=== PATIENT | female | born 1965 | race Caucasian/White ===

== ENCOUNTER 2017-02-26 05:28 | Emergency (ER) | payer MEDICARE, MEDICAID ==
[2017-02-26] MEDS ORDERED: oxyCODONE/Acetamin 5/325 MG* TAB PO ONE (06:58)
[2017-02-26 07:37] VITALS: BP 180/90
--- NOTE | 2017-02-26 07:56 | RAD ---
INDICATION: Right ankle pain COMPARISON: None TECHNIQUE: AP, lateral, and oblique views were obtained. FINDINGS: There is a nondisplaced oblique fracture of the distal fibular metadiaphysis. No other acute fractures are evident. There is an old medial malleolar fracture. There is minor osteoarthritis about the tibiotalar joint. There is mild diffuse soft tissue swelling. There are heel spurs. IMPRESSION: ACUTE FIBULAR FRACTURE. UNDERLYING POSTTRAUMATIC AND DEGENERATIVE CHANGES.
--- NOTE | 2017-02-26 10:38 | RAD ---
INDICATION: Right foot and ankle pain after inversion injury COMPARISON: Same day ankle radiograph TECHNIQUE: 3 views of the right foot were obtained. FINDINGS: There is a nondisplaced obliquely oriented fracture involving the distal fibula extending to the fibular malleolus. The remaining visualized bones of the foot are well corticated and properly aligned. Joint spaces appear maintained. IMPRESSION: MINIMALLY DISPLACED FRACTURE OF THE DISTAL RIGHT FIBULA. BONES OF THE FOOT ARE INTACT AND APPROPRIATELY ALIGNED. If the patient's symptoms persist, follow-up imaging is recommended.
--- NOTE | 2017-02-26 20:04 | ED ---
Mary Ann Logan Edward, scribed for Flavio Smith MD on 02/26/17 at 0712 . Lower Extremity - HPI Summary HPI Summary: 51 y/o female c/o R ankle pain since last night. Pt reports going into a tub and slipped, twisting and inverting her ankle with immediate ankle pain rated at a 4/10 @ triage. The patient did not fall, did not hit her head or neck. The patient has no other complaints. - History of Current Complaint Chief Complaint: EDExtremityLower Stated Complaint: RT FOOT INJURY Time Seen by Provider: 02/26/17 06:17 Hx Obtained From: Patient Mechanism Of Injury: Fall From A Standing Position Onset of Pain: Immediate Severity Initially: Mild Severity Currently: Mild Pain Intensity: 4 Pain Scale Used: 0-10 Numeric Timing: Constant Associated Signs And Symptoms: Positive: Swelling - R ankle, Other - R ankle pain. No HOLDEN, neck pain - Allergies/Home Medications Allergies/Adverse Reactions: Allergies Allergy/AdvReac Type Severity Reaction Status Date / Time Bee Venom Allergy Severe Anaphylatic Verified 02/26/17 05:46 Shock PMH/Surg Hx/FS Hx/Imm Hx Previously Healthy: No Endocrine/Hematology History: Reports: Hx Thyroid Disease Denies: Hx Anticoagulant Therapy, Hx Diabetes Cardiovascular History: Denies: Hx Hypertension, Hx Pacemaker/ICD Respiratory History: Denies: Hx Asthma, Hx Chronic Obstructive Pulmonary Disease (COPD) History: Denies: Hx Renal Disease Neurological History: Denies: Hx Dementia, Hx Seizures Psychiatric History: Denies: Hx Substance Abuse - Immunization History Date of Tetanus Vaccine: Unk Date of Influenza Vaccine: None Infectious Disease History: No Infectious Disease History: Denies: Hx Hepatitis, History Other Infectious Disease, Traveled Outside the [place] in Last 30 Days - Family History Known Family History: Positive: Other - Ovarian CA - Social History Occupation: Employed Part-time Lives: With Family Alcohol Use: None Substance Use Type: Reports: None Smoking Status (MU): Former Smoker Review of Systems Constitutional: Negative Eyes: Negative ENT: Negative Cardiovascular: Negative Respiratory: Negative Gastrointestinal: Negative Genitourinary: Negative Positive: Arthralgia - R ankle, Edema - R ankle. Negative: Myalgia - No neck pain Skin: Negative Neurological: Negative Negative: Headache Psychological: Normal All Other Systems Reviewed And Are Negative: Yes Physical Exam - Summary Physical Exam Summary: VITAL SIGNS:~Reviewed. GENERAL:~ Patient is a well-developed and obese female who is lying comfortable in the stretcher.~ Patient is not in any acute respiratory distress. HEAD AND FACE:~No signs of trauma.~ No ecchymosis, hematomas or skull depressions. No sinus tenderness. EYES:~PERRLA, EOMI x 2, No injected conjunctiva, no nystagmus. EARS:~Hearing grossly intact. Ear canals and tympanic membranes are within normal limits. MOUTH:~Oropharynx within normal limits. NECK:~Supple, trachea is midline, no adenopathy, no JVD, no carotid bruit, no c- spine tenderness, neck with full ROM. CHEST:~Symmetric, no tenderness at palpation LUNGS:~Clear to auscultation bilaterally. No wheezing or crackles. CVS:~Regular rate and rhythm, S1 and S2 present, no murmurs or gallops appreciated. ABDOMEN:~Soft, non-tender. No signs of distention. No rebound no guarding, and no masses palpated. Bowel sounds are normal. EXTREMITIES:~R ankle edema and decreased ROM. No ecchymosis, no cyanosis or clubbing. Good pedal pulses. Ankle modus normal. NEURO:~Alert and oriented x 3. No acute neurological deficits. Speech is normal and follows commands. SKIN:~Dry and warm ~ Triage Information Reviewed: Yes Vital Signs On Initial Exam: Initial Vitals Temp Pulse Resp BP Pulse Ox 97.6 F 84 18 169/92 96 02/26/17 05:37 02/26/17 05:37 02/26/17 05:37 02/26/17 05:37 02/26/17 05:37 Vital Signs Reviewed: Yes Diagnostics - Vital Signs Vital Signs Temp Pulse Resp BP Pulse Ox 02/26/17 05:37 97.6 F 84 18 169/92 96 - Laboratory Lab Statement: Any lab studies that have been ordered have been reviewed, and results considered in the medical decision making process. - Radiology Foot XR Xray Interpretation: No Acute Changes Radiology Interpretation Completed By: ED Physician Ankle XR Xray Interpretation: Positive (See Comments) - Distal fibula fracture Radiology Interpretation Completed By: ED Physician Lower Extremity Course/Dx - Course Assessment/Plan: 51 y/o female c/o R ankle pain since last night. Pt reports going into a tub and slipped, twisting and inverting her ankle with immediate ankle pain rated at a 4/10 @ triage. The patient did not fall, did not hit her head or neck. The patient has no other complaints. 51 y/o female comes in with a distal fibula fracture. A posterior cast was placed on the patient with no complications. Neurovascular exam after cast placement was normal. Patient was given percocet for pain. Patient was d/c home with f/u with Dr. Reymundo Sierra of Orthopedics. Patient was given crutches and advised of no weight bearing. The patient understands and agrees. - Diagnoses Provider Diagnoses: Fracture of distal fibula Discharge - Discharge Plan Condition: Stable Disposition: HOME Prescriptions: HYDROcodone/ACETAMIN 5-325 MG* [[place] 5-325 TAB*] 1 tab PO Q6H PRN #12 tab MDD 4 PRN Reason: Pain Patient Education Materials: Ankle Fracture (ED) Forms: *Work Release Referrals: Reymundo Sierra MD [Medical Doctor] - 3 Days (Please f/u in 2-3 days) The documentation as recorded by the Mary Ann sue Edward accurately reflects the service I personally performed and the decisions made by Luis bland Walter, MD.
== END 2017-02-26 08:05 | disposition home or self-care (01) ==
LOC: ED 05:28
DX: S82.831A Other fracture of upper and lower end of right fibula, initial encounter for closed fracture (principal); W01.0XXA Fall on same level from slipping, tripping and stumbling without subsequent striking against object, initial encounter; Y92.9 Unspecified place or not applicable; E07.9 Disorder of thyroid, unspecified; Z87.891 Personal history of nicotine dependence
CPT/HCPCS: 29405; 99282; A9270-GY

== ENCOUNTER 2017-07-28 05:37 | Emergency (ER) | payer MEDICARE, MEDICAID ==
[2017-07-28] MEDS ORDERED: Azithromycin TAB* 250 MG PO ONE (06:10)
[2017-07-28 06:24] VITALS: BP 165/86
--- NOTE | 2017-08-10 08:48 | ED ---
Mila Logan Emily, scribed for Amrita Bellamy MD on 07/28/17 at 0612 . Respiratory - HPI Summary HPI Summary: This patient is a 51 year old F presenting to [facility] with a chief complaint of sore throat that began 3 days ago. The patient rates the pain 9/10 in severity. Symptoms aggravated by nothing. Symptoms alleviated by nothing. Patient reports productive cough (yellow sputum) and ear ache. Patient denies double vision, blurry vision, CP, SOB, abd pain, urinary symptoms, bowel symptoms, anxiety, depression, back pain, and neck pain. Pt reports sick contacts at home. - History of Current Complaint Chief Complaint: EDFluSymptoms Stated Complaint: SORE THROAT, COUGH Time Seen by Provider: 07/28/17 06:04 Hx Obtained From: Patient Onset/Duration: Sudden Onset, Lasting Days, Still Present Initial Severity: Severe Current Severity: Severe Pain Intensity: 9 Character: Cough (Productive) Sputum Color: Yellow Aggravating Factor(s): Nothing Alleviating Factor(s): Nothing - Allergy/Home Medications Allergies/Adverse Reactions: Allergies Allergy/AdvReac Type Severity Reaction Status Date / Time Bee Venom Allergy Severe Anaphylatic Verified 02/26/17 05:46 Shock PMH/Surg Hx/FS Hx/Imm Hx Previously Healthy: No Endocrine/Hematology History: Reports: Hx Thyroid Disease Denies: Hx Anticoagulant Therapy, Hx Diabetes Cardiovascular History: Denies: Hx Hypertension, Hx Pacemaker/ICD Respiratory History: Denies: Hx Asthma, Hx Chronic Obstructive Pulmonary Disease (COPD) History: Denies: Hx Renal Disease Neurological History: Denies: Hx Dementia, Hx Seizures Psychiatric History: Denies: Hx Substance Abuse - Immunization History Date of Tetanus Vaccine: Unk Date of Influenza Vaccine: None Infectious Disease History: No Infectious Disease History: Denies: Hx Hepatitis, History Other Infectious Disease, Traveled Outside the [place] in Last 30 Days - Family History Known Family History: Positive: Other - Ovarian CA - Social History Occupation: Employed Part-time Lives: With Family Alcohol Use: None Substance Use Type: Reports: None Smoking Status (MU): Former Smoker Review of Systems Negative: Blurred Vision, Diplopia Positive: Sore Throat, Ear Ache Negative: Chest Pain Positive: Cough. Negative: Shortness Of Breath Negative: Abdominal Pain Positive: no symptoms reported Positive: Other - Negative back pain and neck pain Negative: Rash Negative: Headache Negative: Anxious, Depressed All Other Systems Reviewed And Are Negative: No Physical Exam - Summary Physical Exam Summary: Appearance: Alert, conversive, nontoxic appearing Skin: Warm, dry, no mottling, no rashes, no contusions HEENT: EOMI, PERRL, moist mucous membranes Neck: No masses on the neck, supple Respiratory: Clear to auscultation, breath sounds present, no rales, no rhonchi , no wheezes. Slightly distant due to body habitus. Cardiovascular: RRR, pulses are symmetrical in both lower and upper extremities Abdomen: Soft, non-tender Bowel Sounds: Present Musculoskeletal: No CVA tenderness, no obvious deformity, moving all extremities in a grossly normal manner Neurological: A&Ox3, CN II-XII Intact, moving all extremities symmetrically Psychiatric: Normal affect and mood Triage Information Reviewed: Yes Vital Signs On Initial Exam: Initial Vitals Temp Pulse Resp BP Pulse Ox 97.2 F 90 30 173/82 96 07/28/17 05:41 07/28/17 05:41 07/28/17 05:41 07/28/17 05:41 07/28/17 05:41 Vital Signs Reviewed: Yes - Marion Coma Scale Coma Scale Total: 15 Diagnostics - Vital Signs Vital Signs Temp Pulse Resp BP Pulse Ox 07/28/17 05:41 97.2 F 90 30 173/82 96 - Laboratory Lab Statement: Any lab studies that have been ordered have been reviewed, and results considered in the medical decision making process. Disposition - Course Assessment/Plan: This patient is a 51 year old F presenting to [facility] with a chief complaint of sore throat that began 3 days ago. Physical Exam Findings. Moist mucous membranes. Slightly distant due to body habitus. Patient will be discharged with prescription for azithromycin and follow up from PCP. - Diagnoses Provider Diagnoses: Upper respiratory infection Discharge - Discharge Plan Condition: Stable Disposition: HOME Prescriptions: Azithromyxin ARAMIS (NF) [Z-Aramis (Zithromax) 250 mg tabs #6] 2 tab PO .TODAY, THEN 1 DAILY #6 tab Patient Education Materials: Upper Respiratory Infection (ED) Referrals: Kitty Hassan MD [Primary Care Provider] - Additional Instructions: take the azithromycin as instructed. return if worse or any new symptoms. use your inhalers as instructed. The documentation as recorded by the Mila sue Emily accurately reflects the service I personally performed and the decisions made by me, Amrita Bellamy MD.
== END 2017-07-28 06:26 | disposition home or self-care (01) ==
LOC: ED 05:37
DX: J06.9 Acute upper respiratory infection, unspecified (principal); J02.9 Acute pharyngitis, unspecified; R05 Cough; H92.09 Otalgia, unspecified ear
CPT/HCPCS: 99282; A9270-GY

== ENCOUNTER 2017-08-06 14:42 | Inpatient (IN) | payer MEDICARE, MEDICAID ==
[2017-08-06 16:22] LABS: Hematocrit 39 % (35-47); Hemoglobin 12.4 g/dl (12.0-16.0); Mean Corpuscular HGB Conc 32 g/dl (31-36); Mean Corpuscular Hemoglobin 25 pg (27-31); Mean Corpuscular Volume 77 fL (80-97); Mean Platelet Volume 8 um3 (7.4-10.4); Platelet Count 271 10^3/ul (150-450); Red Blood Count 5.06 10^6/ul (4.0-5.4); Red Cell Distribution Width 17 % (10.5-15); White Blood Count 32.6 10^3/ul (3.5-10.8)
--- NOTE | 2017-08-06 16:28 | RAD ---
INDICATION: Right lower extremity swelling. COMPARISON: There are no prior studies available for comparison. TECHNIQUE: Multiple real-time, color flow and Doppler tracings of the right lower extremity were obtained. The exam is limited due to the patient's body habitus. FINDINGS: The common femoral, femoral, profunda femoral and popliteal veins all demonstrate normal compressibility, augmentation with compression and phasic response with respiration. The posterior tibial veins demonstrate normal compressibility and augmentation with compression. The peroneal veins were not well seen. IMPRESSION: LIMITED STUDY, NO EVIDENCE FOR DEEP VENOUS THROMBOSIS.
[2017-08-06 16:31] LABS: INR 1.3 (0.77-1.02)
[2017-08-06] MEDS ORDERED: Piperacillin/Tazobac ADVAN(*) 3.375 GM in NS 0.9% 100 ML* 100 ML IVPB ONE (16:37)
[2017-08-06] MEDS ORDERED: Vancomycin(*) 2,000 MG in NS 0.9% 250 ML* 250 ML IVPB ONE (16:37)
[2017-08-06 16:46] LABS: EGFR Non-African American 33.5 (>60)
--- NOTE | 2017-08-06 17:43 | RAD ---
INDICATION: Dyspnea. COMPARISON: Comparison is made with a prior chest x-ray study from September 25, 2013. TECHNIQUE: A portable view of the chest was obtained. FINDINGS: Cardiac and mediastinal contours appear to be within normal limits. The lungs are clear. No pleural effusion is seen. IMPRESSION: NO EVIDENCE FOR ACUTE DISEASE.
--- NOTE | 2017-08-06 17:44 | RAD ---
INDICATION: Cellulitis. TECHNIQUE: 2 views of the right lower leg were obtained. FINDINGS: There is diffuse soft tissue swelling which is most prominent anterior to the proximal tibia. No significant focal osseous abnormality is seen. Incidental note is made of moderate to severe osteoarthritic change in the knee. IMPRESSION: SOFT TISSUE SWELLING, NO SIGNIFICANT FOCAL OSSEOUS ABNORMALITY.
[2017-08-06] MEDS ORDERED: Ondansetron INJ* 2 MG/ML VIAL IV PRN (17:54)
--- NOTE | 2017-08-06 18:17 | ED ---
Eric Logan Natalie, scribed for Jose Alberto Moore MD on 08/06/17 at 1539 . Lower Extremity - HPI Summary HPI Summary: The pt is a 51 y/o F presenting to the ED c/o blisters on right lower leg starting a day ago. The pain is rated 4/10 in severity. The pain is aggravated by nothing and is alleviated by nothing. 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 Pt additionally c/o LE edema, erythema, shakiness, and nausea. Pt denies fever and diarrhea. She is not diabetic. She fractured her foot so she couldnt walk much for three months, causing her to gain more weight than usual. - History of Current Complaint Chief Complaint: EDExtremityLower Stated Complaint: BLISTERS ON RT LEG Time Seen by Provider: 08/06/17 15:13 Hx Obtained From: Patient Onset of Pain: Hours Onset/Duration: Hours - started yesterday Pain Intensity: 4 Pain Scale Used: 0-10 Numeric Associated Signs And Symptoms: Positive: Other - POSITIVE: swelling, redness, shakiness, nausea; NEGATIVE: fever, diarrhea Aggravating Factor(s): Nothing Alleviating Factor(s): Nothing - Allergies/Home Medications Allergies/Adverse Reactions: Allergies Allergy/AdvReac Type Severity Reaction Status Date / Time Bee Venom Allergy Severe Anaphylatic Verified 02/26/17 05:46 Shock Home Medications: Home Medications Levothyroxine TAB* [Synthroid TAB*] 75 mcg PO 0800 08/06/17 [History Confirmed 08/06/17] Olmesartan (NF) [Benicar (NF)] 20 mg PO DAILY 08/06/17 [History Confirmed ] PMH/Surg Hx/FS Hx/Imm Hx Previously Healthy: No Endocrine/Hematology History: Reports: Hx Thyroid Disease Denies: Hx Anticoagulant Therapy, Hx Diabetes Cardiovascular History: Denies: Hx Hypertension, Hx Pacemaker/ICD Respiratory History: Denies: Hx Asthma, Hx Chronic Obstructive Pulmonary Disease (COPD) History: Denies: Hx Renal Disease Neurological History: Denies: Hx Dementia, Hx Seizures Psychiatric History: Denies: Hx Substance Abuse - Immunization History Date of Tetanus Vaccine: Unk Date of Influenza Vaccine: None Infectious Disease History: No Infectious Disease History: Denies: Hx Hepatitis, History Other Infectious Disease, Traveled Outside the [place] in Last 30 Days - Family History Known Family History: Positive: Diabetes, Other - Ovarian CA - Social History Alcohol Use: None Substance Use Type: Reports: None Smoking Status (MU): Former Smoker Review of Systems Negative: Fever Positive: Nausea. Negative: Diarrhea Positive: Other - LE edema, erythema Positive: Other - blisters on right lower leg Positive: Weakness - shakiness All Other Systems Reviewed And Are Negative: Yes Physical Exam Triage Information Reviewed: Yes Vital Signs On Initial Exam: Initial Vitals Temp Pulse Resp BP Pulse Ox 96.9 F 106 16 144/83 98 08/06/17 14:47 08/06/17 14:47 08/06/17 14:47 08/06/17 14:47 08/06/17 14:47 Vital Signs Reviewed: Yes Appearance: Positive: Pain Distress - mild pain distress, Obese Skin: Positive: Warm, Other - RLE reddened with skin lesions with clear weeping fluid, warmness to touch Head/Face: Positive: Normal Head/Face Inspection Eyes: Positive: EOMI, JASPER ENT: Positive: Normal ENT inspection Neck: Positive: Supple, Nontender Respiratory/Lung Sounds: Positive: Breath Sounds Present, Other - increased dyspnea sitting up Cardiovascular: Positive: Other - tachypnea Abdomen Description: Positive: Nontender, Soft Bowel Sounds: Positive: Present Musculoskeletal: Positive: Strength/ROM Intact, Other - tense edema in right LE , erythema in anterior and posterior right leg Neurological: Positive: Normal, Sensory/Motor Intact, Alert, Oriented to Person Place, Time Diagnostics - Vital Signs Vital Signs Temp Pulse Resp BP Pulse Ox 08/06/17 14:47 96.9 F 106 16 144/83 98 - Laboratory Lab Results: Lab Results 08/06/17 08/06/17 08/06/17 Range/Units 16:12 16:12 16:12 WBC 32.6 H (3.5-10.8) 10^3/ul RBC 5.06 (4.0-5.4) 10^6/ul Hgb 12.4 (12.0-16.0) g/dl Hct 39 (35-47) % MCV 77 L (80-97) fL MCH 25 L (27-31) pg MCHC 32 (31-36) g/dl RDW 17 H (10.5-15) % Plt Count 271 (150-450) 10^3/ul MPV 8 (7.4-10.4) um3 INR (Anticoag Therapy) 1.30 H (0.77-1.02) APTT 38.0 H (26.0-36.3) seconds Sodium 132 L (133-145) mmol/L Potassium 3.9 (3.5-5.0) mmol/L Chloride 99 L (101-111) mmol/L Carbon Dioxide 23 (22-32) mmol/L Anion Gap 10 (2-11) mmol/L BUN 23 (6-24) mg/dL Creatinine 1.62 H (0.51-0.95) mg/dL Est GFR ( Amer) 43.1 (>60) Est GFR (Non-Af Amer) 33.5 (>60) BUN/Creatinine Ratio 14.2 (8-20) Glucose 105 H (70-100) mg/dL Lactic Acid (0.5-2.0) mmol/L Calcium 8.9 (8.6-10.3) mg/dL Total Bilirubin 1.50 H (0.2-1.0) mg/dL AST 22 (13-39) U/L ALT 21 (7-52) U/L Alkaline Phosphatase 77 (34-104) U/L Troponin I 0.02 (<0.04) ng/mL C-Reactive Protein 370.95 H (< 5.00) mg/L B-Natriuretic Peptide ( - 100) pg/mL Total Protein 8.1 (6.4-8.9) g/dL Albumin 3.6 (3.2-5.2) g/dL Globulin 4.5 H (2-4) g/dL Albumin/Globulin Ratio 0.8 L (1-3) 08/06/17 08/06/17 Range/Units 16:12 16:12 WBC (3.5-10.8) 10^3/ul RBC (4.0-5.4) 10^6/ul Hgb (12.0-16.0) g/dl Hct (35-47) % MCV (80-97) fL MCH (27-31) pg MCHC (31-36) g/dl RDW (10.5-15) % Plt Count (150-450) 10^3/ul MPV (7.4-10.4) um3 INR (Anticoag Therapy) (0.77-1.02) APTT (26.0-36.3) seconds Sodium (133-145) mmol/L Potassium (3.5-5.0) mmol/L Chloride (101-111) mmol/L Carbon Dioxide (22-32) mmol/L Anion Gap (2-11) mmol/L BUN (6-24) mg/dL Creatinine (0.51-0.95) mg/dL Est GFR ( Amer) (>60) Est GFR (Non-Af Amer) (>60) BUN/Creatinine Ratio (8-20) Glucose (70-100) mg/dL Lactic Acid 2.1 H* (0.5-2.0) mmol/L Calcium (8.6-10.3) mg/dL Total Bilirubin (0.2-1.0) mg/dL AST (13-39) U/L ALT (7-52) U/L Alkaline Phosphatase (34-104) U/L Troponin I (<0.04) ng/mL C-Reactive Protein (< 5.00) mg/L B-Natriuretic Peptide 175 H ( - 100) pg/mL Total Protein (6.4-8.9) g/dL Albumin (3.2-5.2) g/dL Globulin (2-4) g/dL Albumin/Globulin Ratio (1-3) Result Diagrams: 08/06/17 16:12 08/06/17 16:12 Lab Statement: Any lab studies that have been ordered have been reviewed, and results considered in the medical decision making process. - Radiology CXR Xray Interpretation: No Acute Changes - No evidence for acute disease. ED physician has reviewed this report. Radiology Interpretation Completed By: Radiologist Right Lower Leg XR Xray Interpretation: No Acute Changes - Soft tissue swelling, no significant focal osseous abnormality. ED physician hsa reviewed this report. Radiology Interpretation Completed By: Radiologist - Ultrasound No standard instances Ultrasound Interpretation: No Acute Changes - VL Lower EXT Veins Right. Limited study, no evidence for deep venous thrombosis. ED physician has reviewed this report. Ultrasound Interpretation Completed By: Radiologist - EKG 16:12 Cardiac Rate: NL EKG Rhythm: Sinus Rhythm - 96 BPM EKG Interpretation: Nml axis. Nml interval. Nml ST. Re-Evaluation - Re-Evaluation First Eval Change: Unchanged - stable thru ED course Lower Extremity Course/Dx - Course Course Of Treatment: morbidly obese but non-diabetic. Clinically with cellulitis , likely from chronic wounds. No fever. Very high WBC. BCx sent. Lactate not elevated. Broad spectrum abx given. Vasc study and xray neg. Admit for further. - Diagnoses Provider Diagnoses: Cellulitis of right lower extremity, Morbid obesity Discharge - Discharge Plan Condition: Fair Disposition: ADMITTED TO [facility] Referrals: Kitty Hassan MD [Primary Care Provider] - The documentation as recorded by the Eric sue Natalie accurately reflects the service I personally performed and the decisions made by Oscar bland Kirk, MD.
[2017-08-06] MEDS ORDERED: NS 0.9% 250 ML* 250 ML ONE (18:18)
[2017-08-06] MEDS ORDERED: Vancomycin per Pharmacy* NOTE FOLLOW UP SCH (19:00)
[2017-08-06] MEDS ORDERED: Zosyn per Pharmacy* NOTE FOLLOW UP SCH (19:00)
[2017-08-06] MEDS ORDERED: Vancomycin(*) 2,000 MG in NS 0.9% 500 ML* 500 ML IVPB ONE (19:00)
[2017-08-06] MEDS: NS 0.9% 1000 ML* 3,000 ML IV ONE ×2 (19:07→22:36)
[2017-08-06] MEDS: Acetaminophen TAB* 325 MG PO PRN (20:04)
--- NOTE | 2017-08-06 23:01 | HP ---
CC: Dr. Hassan * [facility] MEDIC[facility] HISTORY AND PHYSICAL: DATE OF ADMISSION: 08/06/17 PRIMARY CARE PROVIDER: Dr. Hassan ATTENDING PHYSICIAN: Willy Smart MD * (dictation provided by Ara Norris NP) CHIEF COMPLAINT: Right lower extremity swelling and warmth. HISTORY OF PRESENT ILLNESS: Ms. Smith is a 51-year-old female with a past medical history of morbid obesity, hypertension, and hypothyroidism who presents today to the hospital with concern for right lower extremity warmth, swelling and pain. Ms. Smith states that she first begin to notice that it was feeling a lot of warmth in her right lower extremity on morning. She says that she has had an infection to that extremity in the past but that has been many years ago. Over the ensuing 24 hours or so, the patient has noted that the area is much more red, warm and painful. She reports feeling warm and having chills but that she did not take her temperature. She has had nausea but no vomiting, no diarrhea. She was diagnosed with an upper respiratory infection and started on, I believe, azithromycin per ED physician here back on 07/28/17. However, these symptoms has been going on since June when she was in the ED for similar complaint with sore throat. She denies sore throat today. She states that she fells like those symptoms have gotten better. She does appear short of breath at rest, and she attributes this to her cold. She denies any history of asthma or COPD. She uses an inhaler but she cannot tell me what that is. In the emergency room, Ms. Smith had labs that were remarkable for the white blood cell count of 32.6, a CRP of 370.95. Her lactic acid is 2.1. She is mildly hyponatremic with a sodium of 132 and the creatinine is up from baseline at 1.62. Her INR is elevated at 1.30. She is febrile with a temperature of 100.3. She is tachycardiac to about 105. Her blood pressure has fallen since arrival, running systolically about 90s. PAST MEDICAL HISTORY: 1. Hypertension. 2. Hypothyroidism. MEDICATIONS: 1. Olmesartan 20 mg p.o. daily. 2. Levothyroxine 75 mcg p.o. daily. ALLERGIES: BEE VENOM. FAMILY HISTORY: The patient reports her mom had diabetes. Her dad had heart disease and about 10 years ago. Her mom about 20 years ago. SOCIAL HISTORY: The patient quit smoke very briefly as a teen. There is no report of alcohol, drug use. She lives with her [place], who is the healthcare proxy. PHYSICAL EXAMINATION GENERAL: Ms. Smith is lying in the bed. She does not appear to be in any acute distress. VITAL SIGNS: Temperature 100.3, pulse rate 97, respiratory rate 24, O2 saturation 96% on room air, blood pressure 97/74. HEENT: Extraocular movements are intact. Face is symmetric. LUNGS: Diminished likely due to body habitus, but I am not checking any wheezing or rhonchi. The patient appears somewhat short of breath and wheezing but likely sounds like upper airway congestion. HEART: S1 and S2. No murmur, rub, or gallop. ABDOMEN: Protuberant, but soft and nontender with bowel sounds positive x4. EXTREMITIES: Right lower extremity edema with erythema ranging from ankle to the knee in the splotchy pattern mostly in the medial surface. There is blistering. There are no open areas at this point. NEUROLOGIC: She is alert. She is oriented x3. She is upset at the idea of having to stay in the hospital and is crying. She moves all extremities equally and follows all commands. There is no facial asymmetry or focal weakness. SKIN: As per above. LABORATORY DATA/IMAGING STUDIES: WBC 32.6, hemoglobin 12.4, hematocrit 39, platelet count 71. INR 1.30, sodium 132, potassium 3.9, chloride 99, serum bicarbonate 23, BUN 23, creatinine 1.62, glucose 105, lactic acid 2.1, total bilirubin 1.5, CRP 370.95. BNP 175. Venous Doppler study of the right lower extremity is read as follows, "Limited study, no evidence for DVT". Chest x-ray read as follows, "No evidence for acute disease." EKG shows sinus rhythm with a heart rate of 90 and no evidence of ischemia. Right lower extremity x-ray is read as follows, "Soft tissue swelling, no significant focal osseous abnormality." ASSESSMENT: Ms. Smith is a 51-year-old female with the past medical history of morbid obesity, hypertension and hypothyroidism who presents today to hospital with concern for right lower extremity redness, swelling and warmth and pain, found to have sepsis secondary to cellulitis. Our plans are for inpatient admission, as I expect her length of stay to be greater than two days for the followin. Sepsis secondary to cellulitis: The patient has a lactic acid of 2.1. I am starting with 3 L fluid bolus and will be rechecking her lactic acid here shortly. Based on a 30 mL per kg bolus, she would need almost 6 L of fluid as she is morbidly obese. I am concerned that this would be excessive and should be adjusted given her morbid obesity and therefore will order 3 L now and reassess in an hour. She will have ceftriaxone and vancomycin for antibiotic coverage for now. I suspect that likely she has a strep cellulitis but given the severity of her inflammatory response I would like to offer more broad spectrum coverage in the next 24 hours. Please note that patient did have blood cultures sent. Infectious Diseases has been consulted. 2. Concern for shortness of breath. The patient does appear short of breath at rest but I think perhaps this is just related to her morbid obesity. Her chest x- ray is clear. She is not hypoxic on room air. We will order duo nebulizers p.r.n. 3. Hypertension. Plan to hold olmesartan during this acute illness. 4. Hypothyroidism. Continue levothyroxine. 5. Code status: Full code. TIME SPENT: Approximately 75 minutes was spent on the admission of this patient , more than half the time spent with the patient at the bedside reviewing the events leading up to this hospitalization, performing the physical examination, and reviewing my plan of care. ARA NORRIS NP [id number]/CPS #: [id number] ZAN
[2017-08-07] MEDS: ZOSYN 3.375 GM Q8H per EXTENDED INFUSION IVPB SCH ×4 (00:01→06:23)
[2017-08-07] MEDS: Heparin VIAL(*) 5000 UNITS/ML VIAL (FIVE THOUSAND) SUBCUT SCH ×4 (00:02→22:01)
[2017-08-07] MEDS: Nystatin TOP POWDER* 15 GM BTL TOPICAL SCH ×3 (00:02→14:58)
[2017-08-07] MEDS: Acetaminophen TAB* 325 MG PO PRN ×3 (02:17→18:27)
[2017-08-07] MEDS: Vancomycin(*) 1,000 MG in D5W 250 ML BAG* 250 ML IVPB SCH ×3 (04:26→21:32)
[2017-08-07 05:09] LABS: Urine Appearance Turbid; Urine Blood Negative (Negative); Urine Ketones Negative (Negative); Urine Protein 1+(30 mg/dL) (Negative); Urine Specific Gravity 1.028 (1.010-1.030); Urine Urobilinogen Negative (Negative)
[2017-08-07 05:14] LABS: Urine Color Amber
[2017-08-07] MEDS: Levothyroxine TAB* 75 MCG TAB PO SCH (05:53)
[2017-08-07 07:19] LABS: ABS Basophils 0 10^3/ul (0-0.2); ABS Eosinophils 0 10^3/ul (0-0.6); ABS Lymphocytes 1.1 10^3/ul (1.0-4.8); ABS Monocytes 0.8 10^3/ul (0-0.8); ABS Neutrophils 23.6 10^3/ul (1.5-7.7); ABS Nucleated RBC 0.02 10^3/ul; Eosinophil % 0.1 % (0-6); Hematocrit 34 % (35-47); Hemoglobin 10.8 g/dl (12.0-16.0); Lymphocyte % 4.2 % (25-47); Mean Corpuscular HGB Conc 32 g/dl (31-36); Mean Corpuscular Hemoglobin 24 pg (27-31); Mean Corpuscular Volume 76 fL (80-97); Mean Platelet Volume 8 um3 (7.4-10.4); Nucleated Red Blood Cells % 0.1; Platelet Count 231 10^3/ul (150-450); Red Blood Count 4.46 10^6/ul (4.0-5.4); Red Cell Distribution Width 17 % (10.5-15); White Blood Count 25.5 10^3/ul (3.5-10.8)
[2017-08-07 07:26] LABS: INR 1.25 (0.77-1.02)
[2017-08-07] MEDS ORDERED: ZOSYN 3.375 GM Q8H per EXTENDED INFUSION IVPB SCH ×2 (07:30)
[2017-08-07 07:31] LABS: EGFR Non-African American 51.3 (>60)
[2017-08-07 07:55] LABS: Monocytes % 1 % (0-13)
[2017-08-07] MEDS ORDERED: cefTRIAXone(*) 1 GM in NS 0.9% 50 ML* 50 ML IVPB SCH (09:00)
--- NOTE | 2017-08-07 09:40 | PN ---
Subjective Date of Service: 08/07/17 Interval History: Rash improving. Tmax 100.3 in ED, since improved. Leukocytosis improving. Pt very agitated to state of tears that she is on telemetry. Wants to leave by 08/08 to celebrate [place]. still painful to right ankle. Took z-pack recently ~07/28/17 Objective Active Medications: Acetaminophen (Tylenol Tab*) 650 mg PO Q6H PRN PRN Reason: pain/fever Last Admin: 08/07/17 02:17 Dose: 650 mg Albuterol/Ipratropium (Duoneb (Albuterol 2.5 Mg/Ipratropium 0.5 Mg)) 1 neb INH Q4H PRN PRN Reason: SOB/WHEEZING Heparin Sodium (Porcine) (Heparin Vial(*)) 5,000 units SUBCUT Q8HR [facility] Last Admin: 08/07/17 05:53 Dose: 5,000 units Ceftriaxone Sodium 1 gm/ (Sodium Chloride) 50 mls @ 200 mls/hr IVPB Q24H [facility] Lactated Ringer's (Lactated Ringers 1000 Ml Bag*) 1,000 mls @ 150 mls/hr IV PER RATE [facility] Last Admin: 08/07/17 02:14 Dose: 150 mls/hr Vancomycin HCl 1,000 mg/ (Dextrose) 250 mls @ 166.667 mls/hr IVPB Q8H [facility] Last Admin: 08/07/17 04:26 Dose: 166.667 mls/hr Levothyroxine Sodium (Synthroid Tab*) 75 mcg PO 0600 [facility] Last Admin: 08/07/17 05:53 Dose: 75 mcg Nystatin (Nystatin Top Powder*) 1 applic TOPICAL QSHIFT [facility] Last Admin: 08/07/17 00:02 Dose: 1 applic Ondansetron HCl (Zofran Inj*) 4 mg IV Q6H PRN PRN Reason: NAUSEA Pharmacy Consult (Vancomycin Per Pharmacy*) 1 note FOLLOW UP .VANC PER PHARMACY [facility] Pharmacy Profile Note (Vancomycin Trough Check) 1 note FOLLOW UP 1999 ONE Stop: 08/07/17 20:01 Vital Signs - 8 hr 08/07/17 08/07/17 07:37 08:00 Temperature 97.3 F Pulse Rate 88 Respiratory 16 Rate Blood Pressure 132/50 (mmHg) O2 Sat by Pulse 98 98 Oximetry Oxygen Devices in Use Now: None Appearance: Crying, agitated. later calmer Eyes: No Scleral Icterus, PERRLA Respiratory: Symmetrical Chest Expansion and Respiratory Effort, Clear to Auscultation Cardiovascular: NL Sounds; No Murmurs; No JVD, - - tachycardic, no murmurs appreciated. Abdominal: - - morbidly obese Extremities: No Edema, No Clubbing, Cyanosis Skin: - - right anterior and medial erythema on lower extremitiy and medial right ankle. Now outlined. warm. nodular indurations. 1 scab more laterally. Neurological: Alert and Oriented x 3, NL Sensation, NL Muscle Strength and Tone Result Diagrams: 08/07/17 06:42 08/07/17 06:42 Additional Lab and Data: Laboratory Results - last 24 hr 08/06/17 08/06/17 08/06/17 16:12 16:12 16:12 WBC 32.6 H RBC 5.06 Hgb 12.4 Hct 39 MCV 77 L MCH 25 L MCHC 32 RDW 17 H Plt Count 271 MPV 8 Neut % (Auto) Lymph % (Auto) [place] % (Auto) Eos % (Auto) Baso % (Auto) Absolute Neuts (auto) Absolute Lymphs (auto) Absolute Monos (auto) Absolute Eos (auto) Absolute Basos (auto) Absolute Nucleated RBC Immature Gran % Neutrophils % Band Neutrophils % Lymphocytes % Monocytes % Eosinophils % Nucleated RBC % Normal RBC Morphology Hypochromasia Microcytosis INR (Anticoag Therapy) 1.30 H APTT 38.0 H Sodium 132 L Potassium 3.9 Chloride 99 L Carbon Dioxide 23 Anion Gap 10 BUN 23 Creatinine 1.62 H Est GFR ( Amer) 43.1 Est GFR (Non-Af Amer) 33.5 BUN/Creatinine Ratio 14.2 Glucose 105 H POC Glucose (mg/dL) Lactic Acid Calcium 8.9 Total Bilirubin 1.50 H AST 22 ALT 21 Alkaline Phosphatase 77 Troponin I 0.02 C-Reactive Protein 370.95 H B-Natriuretic Peptide Total Protein 8.1 Albumin 3.6 Globulin 4.5 H Albumin/Globulin Ratio 0.8 L Urine Color Urine Appearance Urine pH Ur Specific [place] Urine Protein Urine Ketones Urine Blood Urine Nitrate Urine Bilirubin Urine Urobilinogen Ur Leukocyte Esterase Urine WBC (Auto) Urine RBC (Auto) Ur Squamous Epith Cells Urine Bacteria Urine Glucose 08/06/17 08/06/17 08/06/17 16:12 16:12 20:33 WBC RBC Hgb Hct MCV MCH MCHC RDW Plt Count MPV Neut % (Auto) Lymph % (Auto) [place] % (Auto) Eos % (Auto) Baso % (Auto) Absolute Neuts (auto) Absolute Lymphs (auto) Absolute Monos (auto) Absolute Eos (auto) Absolute Basos (auto) Absolute Nucleated RBC Immature Gran % Neutrophils % Band Neutrophils % Lymphocytes % Monocytes % Eosinophils % Nucleated RBC % Normal RBC Morphology Hypochromasia Microcytosis INR (Anticoag Therapy) APTT Sodium Potassium Chloride Carbon Dioxide Anion Gap BUN Creatinine Est GFR ( Amer) Est GFR (Non-Af Amer) BUN/Creatinine Ratio Glucose POC Glucose (mg/dL) Lactic Acid 2.1 H* 1.4 Calcium Total Bilirubin AST ALT Alkaline Phosphatase Troponin I C-Reactive Protein B-Natriuretic Peptide 175 H Total Protein Albumin Globulin Albumin/Globulin Ratio Urine Color Urine Appearance Urine pH Ur Specific [place] Urine Protein Urine Ketones Urine Blood Urine Nitrate Urine Bilirubin Urine Urobilinogen Ur Leukocyte Esterase Urine WBC (Auto) Urine RBC (Auto) Ur Squamous Epith Cells Urine Bacteria Urine Glucose 08/06/17 08/07/17 08/07/17 21:52 02:13 06:42 WBC 25.5 H RBC 4.46 Hgb 10.8 L Hct 34 L MCV 76 L MCH 24 L MCHC 32 RDW 17 H Plt Count 231 MPV 8 Neut % (Auto) 92.4 H Lymph % (Auto) 4.2 L [place] % (Auto) 3.2 Eos % (Auto) 0.1 Baso % (Auto) 0.1 Absolute Neuts (auto) 23.6 H Absolute Lymphs (auto) 1.1 Absolute Monos (auto) 0.8 Absolute Eos (auto) 0 Absolute Basos (auto) 0 Absolute Nucleated RBC 0.02 Immature Gran % 27 H Neutrophils % 65 Band Neutrophils % 27 H Lymphocytes % 6 L Monocytes % 1 Eosinophils % 1 Nucleated RBC % 0.1 Normal RBC Morphology Not Reportable Hypochromasia 1+ Microcytosis 1+ INR (Anticoag Therapy) APTT Sodium Potassium Chloride Carbon Dioxide Anion Gap BUN Creatinine Est GFR ( Amer) Est GFR (Non-Af Amer) BUN/Creatinine Ratio Glucose POC Glucose (mg/dL) 169 H Lactic Acid Calcium Total Bilirubin AST ALT Alkaline Phosphatase Troponin I C-Reactive Protein B-Natriuretic Peptide Total Protein Albumin Globulin Albumin/Globulin Ratio Urine Color [place] Urine Appearance Turbid Urine pH 5.0 Ur Specific [place] 1.028 Urine Protein 1+(30 mg/dl) H Urine Ketones Negative Urine Blood Negative Urine Nitrate Negative Urine Bilirubin Negative Urine Urobilinogen Negative Ur Leukocyte Esterase Negative Urine WBC (Auto) Absent Urine RBC (Auto) Trace(0-2/hpf) Ur Squamous Epith Cells Present H Urine Bacteria Absent Urine Glucose Negative 08/07/17 08/07/17 06:42 06:42 WBC RBC Hgb Hct MCV MCH MCHC RDW Plt Count MPV Neut % (Auto) Lymph % (Auto) [place] % (Auto) Eos % (Auto) Baso % (Auto) Absolute Neuts (auto) Absolute Lymphs (auto) Absolute Monos (auto) Absolute Eos (auto) Absolute Basos (auto) Absolute Nucleated RBC Immature Gran % Neutrophils % Band Neutrophils % Lymphocytes % Monocytes % Eosinophils % Nucleated RBC % Normal RBC Morphology Hypochromasia Microcytosis INR (Anticoag Therapy) 1.25 H APTT Sodium 134 Potassium 4.0 Chloride 104 Carbon Dioxide 22 Anion Gap 8 BUN 27 H Creatinine 1.12 H Est GFR ( Amer) 66.0 Est GFR (Non-Af Amer) 51.3 BUN/Creatinine Ratio 24.1 H Glucose 130 H POC Glucose (mg/dL) Lactic Acid Calcium 8.5 L Total Bilirubin AST ALT Alkaline Phosphatase Troponin I C-Reactive Protein B-Natriuretic Peptide Total Protein Albumin Globulin Albumin/Globulin Ratio Urine Color Urine Appearance Urine pH Ur Specific [place] Urine Protein Urine Ketones Urine Blood Urine Nitrate Urine Bilirubin Urine Urobilinogen Ur Leukocyte Esterase Urine WBC (Auto) Urine RBC (Auto) Ur Squamous Epith Cells Urine Bacteria Urine Glucose Assess/Plan/Problems-Billing Assessment: 51 yo female [facility] morbid obesity, hypothyroidism, HTN, recent right ankle fracture presenting with sepsis and RLE cellulitis, improving with vanc/ ceftriaxone. - Patient Problems (1) Sepsis Current Visit: Yes Status: Acute Comment: On presentation marked leukocytosis (32.6) now improving mild lactic acidosis, resolved tachycardia, low grade fever. Source cellulitis RLE suspected. f/u Blood Cultures. s/p IVF continue antibiotics as below. (2) Cellulitis Current Visit: Yes Status: Acute Code(s): L03.90 - CELLULITIS, UNSPECIFIED SNOMED Code(s): 519054319 Comment: Per pt report rash improving. less painful. Have marked with skin marker. Suspicion for strep cellulitis. Continue vancomycin and ceftriaxone until blood cultures back. ID was consulted on admission, will f/u recs. CRP marked elevated 370 on admission. Xray of lower extremity with soft tissue swelling, no focal ostial abnormality. Pt thinks may have scratched herself on pallet or side of bed but not clear on timing. Also remote cat scratch (3) HTN (hypertension) Current Visit: Yes Status: Acute Code(s): I10 - ESSENTIAL (PRIMARY) HYPERTENSION SNOMED Code(s): 53217838 Comment: hold home olmesartan 20mg daily in setting of sepsis. SBP mid 90s on admission. (4) Hypothyroidism Current Visit: Yes Status: Acute Code(s): E03.9 - HYPOTHYROIDISM, UNSPECIFIED SNOMED Code(s): 29541034 Comment: continue synthroid 75mcg. Status and Disposition: medicine inpatient. Attending: Willy Smart
[2017-08-07] MEDS: cefTRIAXone(*) 1 GM in NS 0.9% 50 ML* 50 ML IVPB SCH (12:10)
[2017-08-07] MEDS ORDERED: Vancomycin Trough Check NOTE FOLLOW UP ONE (20:00)
[2017-08-07] MEDS: Morphine INJ* 4 MG/ML 1 ML CARPUJECT IV PRN (21:51)
[2017-08-08] MEDS: Nystatin TOP POWDER* 15 GM BTL TOPICAL SCH ×3 (01:36→17:45)
[2017-08-08] MEDS: Vancomycin(*) 1,000 MG in D5W 250 ML BAG* 250 ML IVPB SCH ×2 (04:21→12:07)
[2017-08-08] MEDS: Acetaminophen TAB* 325 MG PO PRN ×2 (04:59→20:45)
[2017-08-08] MEDS: Heparin VIAL(*) 5000 UNITS/ML VIAL (FIVE THOUSAND) SUBCUT SCH ×3 (05:00→20:50)
[2017-08-08] MEDS: Levothyroxine TAB* 75 MCG TAB PO SCH (05:00)
[2017-08-08] MEDS: cefTRIAXone(*) 1 GM in NS 0.9% 50 ML* 50 ML IVPB SCH (10:13)
[2017-08-08] MEDS: oxyCODONE/Acetamin 5/325 MG* TAB PO PRN ×2 (10:13→20:56)
[2017-08-08 10:14] LABS: ABS Basophils 0 10^3/ul (0-0.2); ABS Eosinophils 0.4 10^3/ul (0-0.6); ABS Lymphocytes 1.7 10^3/ul (1.0-4.8); ABS Monocytes 0.7 10^3/ul (0-0.8); ABS Neutrophils 16.4 10^3/ul (1.5-7.7); ABS Nucleated RBC 0.02 10^3/ul; Eosinophil % 2.1 % (0-6); Hematocrit 34 % (35-47); Hemoglobin 10.7 g/dl (12.0-16.0); Lymphocyte % 8.9 % (25-47); Mean Corpuscular HGB Conc 32 g/dl (31-36); Mean Corpuscular Hemoglobin 24 pg (27-31); Mean Corpuscular Volume 77 fL (80-97); Mean Platelet Volume 8 um3 (7.4-10.4); Nucleated Red Blood Cells % 0.1; Platelet Count 256 10^3/ul (150-450); Red Blood Count 4.43 10^6/ul (4.0-5.4); Red Cell Distribution Width 17 % (10.5-15); White Blood Count 19.3 10^3/ul (3.5-10.8)
[2017-08-08 10:47] LABS: EGFR Non-African American 70.5 (>60)
[2017-08-08] MEDS ORDERED: Docusate CAP* 100 MG PO PRN (12:44)
[2017-08-08] MEDS: Polyethylene Glycol 3350* 17 GM PACKET PO SCH (13:52)
[2017-08-08] MEDS ORDERED: Zosyn per Pharmacy* NOTE FOLLOW UP SCH (17:00)
[2017-08-08] MEDS ORDERED: Piperacillin/Tazobac ADVAN(*) 3.375 GM in NS 0.9% 100 ML* 100 ML IVPB ONE (17:00)
[2017-08-08] MEDS: Clindamycin 900 MG IVPREMIX(* 900 MG/50 ML SDV IV SCH (17:24)
--- NOTE | 2017-08-08 17:26 | PN ---
Subjective Date of Service: 08/08/17 Interval History: Some progression of cellulitis outside drawn lines, abx changed. Bullea on medial calf and ankle (popped and culture drawn). Wanting bowel regimen. Occasionally tearful/emotional. CT lower extremity pending. BCX NGTD. Objective Active Medications: Acetaminophen (Tylenol Tab*) 650 mg PO Q6H PRN PRN Reason: pain/fever Last Admin: 08/08/17 04:59 Dose: 650 mg Albuterol/Ipratropium (Duoneb (Albuterol 2.5 Mg/Ipratropium 0.5 Mg)) 1 neb INH Q4H PRN PRN Reason: SOB/WHEEZING Docusate Sodium (Colace Cap*) 200 mg PO DAILY PRN PRN Reason: CONSTIPATION Last Admin: 08/08/17 13:52 Dose: 200 mg Heparin Sodium (Porcine) (Heparin Vial(*)) 5,000 units SUBCUT Q8HR [facility] Last Admin: 08/08/17 13:52 Dose: 5,000 units Lactated Ringer's (Lactated Ringers 1000 Ml Bag*) 1,000 mls @ 150 mls/hr IV PER RATE [facility] Last Admin: 08/08/17 15:34 Dose: 150 mls/hr Vancomycin HCl 1,000 mg/ (Sodium Chloride) 250 mls @ 166.667 mls/hr IVPB 0400, 1200,2000 [facility] Clindamycin HCl/Dextrose (Cleocin 900 Mg Ivpremix (*) Sdv) 900 mg in 50 mls @ 100 mls/hr IV Q8H [facility] Piperacillin Sod/Tazobactam (Sod 3.375 gm/ Sodium Chloride) 100 mls @ 200 mls/ hr IVPB ONCE ONE Stop: 08/08/17 17:29 Levothyroxine Sodium (Synthroid Tab*) 75 mcg PO 0600 [facility] Last Admin: 08/08/17 05:00 Dose: 75 mcg Morphine Sulfate (Morphine Inj (Syringe)*) 4 mg IV Q4H PRN PRN Reason: PAIN Last Admin: 08/07/17 21:51 Dose: 4 mg Nystatin (Nystatin Top Powder*) 1 applic TOPICAL QSHIFT [facility] Last Admin: 08/08/17 10:14 Dose: 1 applic Ondansetron HCl (Zofran Inj*) 4 mg IV Q6H PRN PRN Reason: NAUSEA Oxycodone/Acetaminophen (Percocet 5/325 Tab*) 1 tab PO Q4H PRN PRN Reason: PAIN Last Admin: 08/08/17 10:13 Dose: 1 tab Pharmacy Consult (Vancomycin Per Pharmacy*) 1 note FOLLOW UP .VANC PER PHARMACY [facility] Pharmacy Consult (Zosyn Per Pharmacy*) 1 note FOLLOW UP .ZOSYN PER PHARMACY [facility] Polyethylene Glycol/Electrolytes (Miralax*) 17 gm PO DAILY [facility] Last Admin: 08/08/17 13:52 Dose: 17 gm Vital Signs - 8 hr 08/08/17 08/08/17 08/08/17 10:13 12:07 13:42 Temperature 98.0 F Pulse Rate 133 Respiratory 16 16 Rate Blood Pressure 128/79 (mmHg) O2 Sat by Pulse 95 Oximetry 08/08/17 16:49 Temperature 97.3 F Pulse Rate 85 Respiratory 20 Rate Blood Pressure 139/75 (mmHg) O2 Sat by Pulse 96 Oximetry Oxygen Devices in Use Now: None Appearance: NAD. super morbid obesity. Ears/Nose/Mouth/Throat: NL Teeth, Lips, Gums Respiratory: Symmetrical Chest Expansion and Respiratory Effort, Clear to Auscultation Cardiovascular: NL Sounds; No Murmurs; No JVD, RRR Abdominal: - - morbid obesity, Extremities: No Edema Skin: - - erythema extending outside of drawn lines on right lower extremity. tense bullae on right ankle and medial calf. Neurological: Alert and Oriented x 3, NL Muscle Strength and Tone Result Diagrams: 08/08/17 09:31 08/08/17 09:31 Additional Lab and Data: Laboratory Results - last 24 hr 08/07/17 08/08/17 08/08/17 19:59 09:31 09:31 WBC 19.3 H RBC 4.43 Hgb 10.7 L Hct 34 L MCV 77 L MCH 24 L MCHC 32 RDW 17 H Plt Count 256 MPV 8 Neut % (Auto) 85.0 H Lymph % (Auto) 8.9 L [place] % (Auto) 3.8 Eos % (Auto) 2.1 Baso % (Auto) 0.2 Absolute Neuts (auto) 16.4 H Absolute Lymphs (auto) 1.7 Absolute Monos (auto) 0.7 Absolute Eos (auto) 0.4 Absolute Basos (auto) 0 Absolute Nucleated RBC 0.02 Nucleated RBC % 0.1 Sodium 135 Potassium 4.0 Chloride 103 Carbon Dioxide 25 Anion Gap 7 BUN 17 Creatinine 0.85 Est GFR ( Amer) 90.7 Est GFR (Non-Af Amer) 70.5 BUN/Creatinine Ratio 20.0 Glucose 123 H Calcium 9.0 Total Creatine Kinase Cancelled C-Reactive Protein Vancomycin Trough 12.9 08/08/17 16:23 WBC RBC Hgb Hct MCV MCH MCHC RDW Plt Count MPV Neut % (Auto) Lymph % (Auto) [place] % (Auto) Eos % (Auto) Baso % (Auto) Absolute Neuts (auto) Absolute Lymphs (auto) Absolute Monos (auto) Absolute Eos (auto) Absolute Basos (auto) Absolute Nucleated RBC Nucleated RBC % Sodium Potassium Chloride Carbon Dioxide Anion Gap BUN Creatinine Est GFR ( Amer) Est GFR (Non-Af Amer) BUN/Creatinine Ratio Glucose Calcium Total Creatine Kinase 38 C-Reactive Protein 315.37 H Vancomycin Trough Microbiology and Other Data: Microbiology 08/08/17 16:10 Ankle Right Gram Stain - Preliminary 08/06/17 16:12 Blood Venous Aerobic Blood Culture - Preliminary No Growth Day 2 08/06/17 16:12 Blood Venous Anaerobic Blood Culture - Preliminary No Growth Day 2 08/07/17 17:30 Nasal Nasal Screen MRSA (PCR)(JOSE) - Final Mrsa Negative 08/06/17 17:34 Blood Venous Aerobic Blood Culture - Preliminary No Growth Day 1 08/06/17 17:34 Blood Venous Anaerobic Blood Culture - Preliminary No Growth Day 1 Assess/Plan/Problems-Billing Assessment: 51 yo female [facility] morbid obesity, hypothyroidism, HTN, recent right ankle fracture presenting with sepsis and RLE cellulitis, intiially improving with vanc/ceftriaxone but seemed to backtrack today. Switched to vanc/zosyn/clinda. - Patient Problems (1) Sepsis Current Visit: Yes Status: Acute Comment: On presentation marked leukocytosis (32.6) now improving mild lactic acidosis, resolved tachycardia, low grade fever (resolved). Source cellulitis RLE suspected. Blood Cultures NGTD continue antibiotics as below. (2) Cellulitis Current Visit: Yes Status: Acute Code(s): L03.90 - CELLULITIS, UNSPECIFIED SNOMED Code(s): 243474938 Comment: now extending outside of skin marker superiorly. Suspicion for strep cellulitis. Continue vancomycin, stop ceftriaxone start zosyn and clinda. ID was consulted on admission, will f/u recs. CRP marked elevated 370 on admission, now improved 315. Xray of lower extremity with soft tissue swelling, no focal ostial abnormality. f/u CT lower extremity. CK wnl. Pt thinks may have scratched herself on pallet or side of bed but not clear on timing. Also remote cat scratch (3) HTN (hypertension) Current Visit: Yes Status: Acute Code(s): I10 - ESSENTIAL (PRIMARY) HYPERTENSION SNOMED Code(s): 10706512 Comment: hold home olmesartan 20mg daily in setting of sepsis. SBP mid 90s on admission. (4) Hypothyroidism Current Visit: Yes Status: Acute Code(s): E03.9 - HYPOTHYROIDISM, UNSPECIFIED SNOMED Code(s): 11707692 Comment: continue synthroid 75mcg. Status and Disposition: medicine inpatient. On IV antibiotics Attending: Willy Smart
--- NOTE | 2017-08-08 19:35 | RAD ---
INDICATION: Right leg cellulitis COMPARISON: None. TECHNIQUE: Noncontrast CT examination of the right leg. Axial images were acquired and sagittal and coronal reformats were created and independently analyzed. FINDINGS: Beginning from the mid thigh there is infiltration of the subcutaneous fat becoming more severe in the more inferior portions of the right leg. Within the dermis overlying the medial right ankle is a fluid collection measuring 1.7 x 6.6 cm in the axial plane (image 180 of 255). At the mid-level right lower leg there is a similar fluid density dermal structure measuring 1.1 x 3.0 cm (axial image 91) along the posterior medial margin of the skin. There are no drainable fluid collections deeper than the dermis. The soft tissue structures are grossly intact within the limitations of a noncontrast CT examination. The bones are intact. IMPRESSION: Fluid density blisters overlying the right lower leg as described above. Differential diagnosis could include pemphigus vulgaris, bullous pemphigoid or erythema multiforme. Dermatologic consultation may be appropriate.
[2017-08-08] MEDS: Vancomycin(*) 1,000 MG in NS 0.9% 250 ML* 250 ML IVPB SCH (20:45)
[2017-08-08] MEDS ORDERED: Albuterol HFA INHALER* 8 gm MDI INH PRN (21:12)
[2017-08-08] MEDS: ZOSYN 3.375 GM Q8H per EXTENDED INFUSION IVPB SCH ×2 (22:48)
[2017-08-09] MEDS: Clindamycin 900 MG IVPREMIX(* 900 MG/50 ML SDV IV SCH ×3 (00:23→16:52)
[2017-08-09] MEDS: Nystatin TOP POWDER* 15 GM BTL TOPICAL SCH ×4 (00:24→16:52)
[2017-08-09] MEDS: Vancomycin(*) 1,000 MG in NS 0.9% 250 ML* 250 ML IVPB SCH ×2 (04:03→13:26)
[2017-08-09] MEDS: Levothyroxine TAB* 75 MCG TAB PO SCH (06:02)
[2017-08-09] MEDS: ZOSYN 3.375 GM Q8H per EXTENDED INFUSION IVPB SCH ×2 (06:03)
[2017-08-09] MEDS: Heparin VIAL(*) 5000 UNITS/ML VIAL (FIVE THOUSAND) SUBCUT SCH ×3 (06:05→22:16)
[2017-08-09] MEDS: Polyethylene Glycol 3350* 17 GM PACKET PO SCH (08:11)
[2017-08-09] MEDS: Morphine INJ* 4 MG/ML 1 ML CARPUJECT IV PRN (09:46)
[2017-08-09 12:35] LABS: ABS Basophils 0.1 10^3/ul (0-0.2); ABS Eosinophils 0.6 10^3/ul (0-0.6); ABS Lymphocytes 1.9 10^3/ul (1.0-4.8); ABS Monocytes 1.1 10^3/ul (0-0.8); ABS Neutrophils 13.6 10^3/ul (1.5-7.7); ABS Nucleated RBC 0.01 10^3/ul; Eosinophil % 3.5 % (0-6); Hematocrit 33 % (35-47); Hemoglobin 10.3 g/dl (12.0-16.0); Lymphocyte % 11.1 % (25-47); Mean Corpuscular HGB Conc 32 g/dl (31-36); Mean Corpuscular Hemoglobin 24 pg (27-31); Mean Corpuscular Volume 76 fL (80-97); Mean Platelet Volume 8 um3 (7.4-10.4); Nucleated Red Blood Cells % 0.1; Platelet Count 315 10^3/ul (150-450); Red Blood Count 4.27 10^6/ul (4.0-5.4); Red Cell Distribution Width 17 % (10.5-15); White Blood Count 17.4 10^3/ul (3.5-10.8)
[2017-08-09 12:51] LABS: EGFR Non-African American 71.5 (>60)
--- NOTE | 2017-08-09 16:49 | PN ---
Subjective Date of Service: 08/09/17 Interval History: Tmax 100.1. last night. Progression of bullae and loose skin. Leukocytosis improving to 17.4 Objective Active Medications: Acetaminophen (Tylenol Tab*) 650 mg PO Q6H PRN PRN Reason: pain/fever Last Admin: 08/08/17 20:45 Dose: 650 mg Albuterol (Ventolin Hfa Inhaler*) 2 puff INH Q4H PRN PRN Reason: SOB/WHEEZING Albuterol/Ipratropium (Duoneb (Albuterol 2.5 Mg/Ipratropium 0.5 Mg)) 1 neb INH Q4H PRN PRN Reason: SOB/WHEEZING Docusate Sodium (Colace Cap*) 200 mg PO DAILY PRN PRN Reason: CONSTIPATION Last Admin: 08/08/17 13:52 Dose: 200 mg Heparin Sodium (Porcine) (Heparin Vial(*)) 5,000 units SUBCUT Q8HR [facility] Last Admin: 08/09/17 13:48 Dose: 5,000 units Clindamycin HCl/Dextrose (Cleocin 900 Mg Ivpremix (*) Sdv) 900 mg in 50 mls @ 100 mls/hr IV Q8H [facility] Last Admin: 08/09/17 11:19 Dose: 100 mls/hr Levothyroxine Sodium (Synthroid Tab*) 75 mcg PO 0600 [facility] Last Admin: 08/09/17 06:02 Dose: 75 mcg Morphine Sulfate (Morphine Inj (Syringe)*) 4 mg IV Q4H PRN PRN Reason: PAIN Last Admin: 08/09/17 09:46 Dose: 4 mg Nystatin (Nystatin Top Powder*) 1 applic TOPICAL QSHIFT [facility] Last Admin: 08/09/17 09:00 Dose: Not Given Ondansetron HCl (Zofran Inj*) 4 mg IV Q6H PRN PRN Reason: NAUSEA Oxycodone/Acetaminophen (Percocet 5/325 Tab*) 1 tab PO Q4H PRN PRN Reason: PAIN Last Admin: 08/08/17 20:56 Dose: 1 tab Polyethylene Glycol/Electrolytes (Miralax*) 17 gm PO DAILY [facility] Last Admin: 08/09/17 08:11 Dose: 17 gm Vital Signs - 8 hr 08/09/17 08/09/17 09:46 10:46 Respiratory 16 22 Rate Oxygen Devices in Use Now: Nasal Cannula Appearance: NAD, occasionally tearful. face jose ramon Eyes: No Scleral Icterus, PERRLA Ears/Nose/Mouth/Throat: NL Teeth, Lips, Gums, Mucous Membranes Moist Respiratory: Symmetrical Chest Expansion and Respiratory Effort, - - anteriorly clear to auscultation Cardiovascular: NL Sounds; No Murmurs; No JVD, RRR Abdominal: NL Sounds; No Tenderness; No Distention, - - morbid obesity. Extremities: No Edema Skin: - - erythema progressed superiorly Neurological: Alert and Oriented x 3, NL Sensation, NL Muscle Strength and Tone Result Diagrams: 08/09/17 12:21 08/09/17 12:21 Additional Lab and Data: Laboratory Results - last 24 hr 08/09/17 08/09/17 08/09/17 12:21 12:21 12:21 WBC 17.4 H RBC 4.27 Hgb 10.3 L Hct 33 L MCV 76 L MCH 24 L MCHC 32 RDW 17 H Plt Count 315 MPV 8 Neut % (Auto) 78.4 Lymph % (Auto) 11.1 L [place] % (Auto) 6.3 Eos % (Auto) 3.5 Baso % (Auto) 0.7 Absolute Neuts (auto) 13.6 H Absolute Lymphs (auto) 1.9 Absolute Monos (auto) 1.1 H Absolute Eos (auto) 0.6 Absolute Basos (auto) 0.1 Absolute Nucleated RBC 0.01 Nucleated RBC % 0.1 Sodium 134 Potassium 4.5 Chloride 103 Carbon Dioxide 27 Anion Gap 4 BUN 12 Creatinine 0.84 Est GFR ( Amer) 91.9 Est GFR (Non-Af Amer) 71.5 BUN/Creatinine Ratio 14.3 Glucose 112 H Calcium 9.1 Vancomycin Trough 11.5 Microbiology and Other Data: Microbiology 08/06/17 16:12 Blood Venous Aerobic Blood Culture - Preliminary No Growth Day 3 08/06/17 16:12 Blood Venous Anaerobic Blood Culture - Preliminary No Growth Day 3 08/08/17 16:10 Ankle Right Gram Stain - Final 08/08/17 16:10 Ankle Right Wound Culture - Preliminary No Growth Day 1 08/06/17 17:34 Blood Venous Aerobic Blood Culture - Preliminary No Growth Day 2 08/06/17 17:34 Blood Venous Anaerobic Blood Culture - Preliminary No Growth Day 2 08/07/17 17:30 Nasal Nasal Screen MRSA (PCR)(JOSE) - Final Mrsa Negative Assess/Plan/Problems-Billing Assessment: 51 yo female [facility] morbid obesity, hypothyroidism, HTN, recent right ankle fracture presenting with sepsis and RLE cellulitis suspicion for group A strep given development of bullae. Cultures negative. Currently clindamycin. - Patient Problems (1) Cellulitis Current Visit: Yes Status: Acute Code(s): L03.90 - CELLULITIS, UNSPECIFIED SNOMED Code(s): 208246805 Comment: extending outside of skin marker superiorly. Suspicion for group A strep cellulitis. Was able to touch base with ID. Recommended stopping vancomycin and zosyn but continue clindamycin. Currently 900mg q8hr. ID was consulted on admission, will f/u formal recs when in house CRP marked elevated 370 on admission, now improved 315. Xray of lower extremity with soft tissue swelling, no focal ostial abnormality. CT lower extremity with no drainable fluid collections of noted gas. CK wnl. Pt thinks may have scratched herself on pallet or side of bed but not clear on timing. Also remote cat scratch (2) Sepsis Current Visit: Yes Status: Acute Comment: On presentation marked leukocytosis (32.6) now improving mild lactic acidosis, resolved tachycardia, low grade fever (resolved). Source cellulitis RLE suspected. Blood Cultures and bullae fluid culture NGTD continue clinda (3) HTN (hypertension) Current Visit: Yes Status: Acute Code(s): I10 - ESSENTIAL (PRIMARY) HYPERTENSION SNOMED Code(s): 55534409 Comment: hold home olmesartan 20mg daily in setting of sepsis. SBP mid 90s on admission. Now up to 150s, consider restart losartan tomorrow. (4) Hypothyroidism Current Visit: Yes Status: Acute Code(s): E03.9 - HYPOTHYROIDISM, UNSPECIFIED SNOMED Code(s): 17322497 Comment: continue synthroid 75mcg. Status and Disposition: medicine inpatient. On IV antibiotics. Needs continued IV tx and observation given risk for moribidity/mortality Attending: Willy Smart
[2017-08-09] MEDS: Albuterol/Ipratropium NEB.SOL* Albuterol 2.5 MG/Ipratropium 0.5 MG 3 ML INH PRN (18:33)
[2017-08-09] MEDS: oxyCODONE/Acetamin 5/325 MG* TAB PO PRN (20:18)
[2017-08-10] MEDS: Clindamycin 900 MG IVPREMIX(* 900 MG/50 ML SDV IV SCH ×4 (00:27→23:24)
[2017-08-10] MEDS: Nystatin TOP POWDER* 15 GM BTL TOPICAL SCH ×4 (00:31→23:57)
[2017-08-10] MEDS: oxyCODONE/Acetamin 5/325 MG* TAB PO PRN ×4 (01:15→22:16)
[2017-08-10] MEDS: Levothyroxine TAB* 75 MCG TAB PO SCH (05:11)
[2017-08-10] MEDS: Heparin VIAL(*) 5000 UNITS/ML VIAL (FIVE THOUSAND) SUBCUT SCH ×3 (05:12→22:15)
[2017-08-10] MEDS: Polyethylene Glycol 3350* 17 GM PACKET PO SCH (08:14)
[2017-08-10] MEDS: Acetaminophen TAB* 325 MG PO PRN (08:26)
[2017-08-10 10:58] LABS: ABS Basophils 0.1 10^3/ul (0-0.2); ABS Eosinophils 0.6 10^3/ul (0-0.6); ABS Lymphocytes 1.7 10^3/ul (1.0-4.8); ABS Monocytes 0.7 10^3/ul (0-0.8); ABS Neutrophils 9.4 10^3/ul (1.5-7.7); ABS Nucleated RBC 0.01 10^3/ul; Eosinophil % 4.6 % (0-6); Hematocrit 31 % (35-47); Hemoglobin 9.9 g/dl (12.0-16.0); Lymphocyte % 13.9 % (25-47); Mean Corpuscular HGB Conc 32 g/dl (31-36); Mean Corpuscular Hemoglobin 24 pg (27-31); Mean Corpuscular Volume 76 fL (80-97); Mean Platelet Volume 8 um3 (7.4-10.4); Nucleated Red Blood Cells % 0.1; Platelet Count 328 10^3/ul (150-450); Red Cell Distribution Width 17 % (10.5-15); White Blood Count 12.5 10^3/ul (3.5-10.8)
[2017-08-10] MEDS: Albuterol/Ipratropium NEB.SOL* Albuterol 2.5 MG/Ipratropium 0.5 MG 3 ML INH PRN (13:43)
[2017-08-10] MEDS: Morphine INJ* 4 MG/ML 1 ML CARPUJECT IV PRN ×2 (15:17→20:46)
--- NOTE | 2017-08-10 17:40 | PN ---
Subjective Date of Service: 08/10/17 Interval History: leg similar to before. no significant progression. Objective Active Medications: Acetaminophen (Tylenol Tab*) 650 mg PO Q6H PRN PRN Reason: pain/fever Last Admin: 08/10/17 08:26 Dose: 650 mg Albuterol (Ventolin Hfa Inhaler*) 2 puff INH Q4H PRN PRN Reason: SOB/WHEEZING Albuterol/Ipratropium (Duoneb (Albuterol 2.5 Mg/Ipratropium 0.5 Mg)) 1 neb INH Q4H PRN PRN Reason: SOB/WHEEZING Last Admin: 08/10/17 13:43 Dose: 1 neb Docusate Sodium (Colace Cap*) 200 mg PO DAILY PRN PRN Reason: CONSTIPATION Last Admin: 08/08/17 13:52 Dose: 200 mg Heparin Sodium (Porcine) (Heparin Vial(*)) 5,000 units SUBCUT Q8HR [facility] Last Admin: 08/10/17 13:27 Dose: 5,000 units Clindamycin HCl/Dextrose (Cleocin 900 Mg Ivpremix (*) Sdv) 900 mg in 50 mls @ 100 mls/hr IV Q8H [facility] Last Admin: 08/10/17 15:29 Dose: 100 mls/hr Levothyroxine Sodium (Synthroid Tab*) 75 mcg PO 0600 [facility] Last Admin: 08/10/17 05:11 Dose: 75 mcg Morphine Sulfate (Morphine Inj (Syringe)*) 4 mg IV Q4H PRN PRN Reason: PAIN Last Admin: 08/10/17 15:17 Dose: 4 mg Nystatin (Nystatin Top Powder*) 1 applic TOPICAL QSHIFT [facility] Last Admin: 08/10/17 16:09 Dose: Not Given Ondansetron HCl (Zofran Inj*) 4 mg IV Q6H PRN PRN Reason: NAUSEA Oxycodone/Acetaminophen (Percocet 5/325 Tab*) 1 tab PO Q4H PRN PRN Reason: PAIN Last Admin: 08/10/17 13:28 Dose: 1 tab Polyethylene Glycol/Electrolytes (Miralax*) 17 gm PO DAILY [facility] Last Admin: 08/10/17 08:14 Dose: 17 gm Vital Signs - 8 hr 08/10/17 08/10/17 08/10/17 10:08 11:39 13:28 Temperature 97.9 F Pulse Rate 78 Respiratory 22 16 22 Rate Blood Pressure 156/80 (mmHg) O2 Sat by Pulse 99 Oximetry 08/10/17 08/10/17 08/10/17 13:44 15:17 16:33 Temperature Pulse Rate 84 Respiratory 20 30 22 Rate Blood Pressure (mmHg) O2 Sat by Pulse 92 Oximetry Oxygen Devices in Use Now: None Appearance: NAD, occasionally tearful. Eyes: No Scleral Icterus, PERRLA Ears/Nose/Mouth/Throat: NL Teeth, Lips, Gums Neck: NL Appearance and Movements; NL JVP Respiratory: Symmetrical Chest Expansion and Respiratory Effort, Clear to Auscultation Cardiovascular: NL Sounds; No Murmurs; No JVD, RRR Abdominal: NL Sounds; No Tenderness; No Distention Extremities: - - but angry looking Skin: - - see above Neurological: Alert and Oriented x 3, NL Sensation, NL Muscle Strength and Tone Result Diagrams: 08/10/17 10:45 08/09/17 12:21 Additional Lab and Data: Laboratory Results - last 24 hr 08/10/17 10:45 WBC 12.5 H RBC 4.10 Hgb 9.9 L Hct 31 L MCV 76 L MCH 24 L MCHC 32 RDW 17 H Plt Count 328 MPV 8 Neut % (Auto) 75.0 Lymph % (Auto) 13.9 L Price % (Auto) 5.9 Eos % (Auto) 4.6 Baso % (Auto) 0.6 Absolute Neuts (auto) 9.4 H Absolute Lymphs (auto) 1.7 Absolute Monos (auto) 0.7 Absolute Eos (auto) 0.6 Absolute Basos (auto) 0.1 Absolute Nucleated RBC 0.01 Nucleated RBC % 0.1 Microbiology and Other Data: Microbiology 08/06/17 16:12 Blood Venous Aerobic Blood Culture - Preliminary No Growth Day 4 08/06/17 16:12 Blood Venous Anaerobic Blood Culture - Preliminary No Growth Day 4 08/08/17 16:10 Ankle Right Gram Stain - Final 08/08/17 16:10 Ankle Right Wound Culture - Final No Growth Day 2 08/06/17 17:34 Blood Venous Aerobic Blood Culture - Preliminary No Growth Day 3 08/06/17 17:34 Blood Venous Anaerobic Blood Culture - Preliminary No Growth Day 3 08/07/17 17:30 Nasal Nasal Screen MRSA (PCR)(JOSE) - Final Mrsa Negative Assess/Plan/Problems-Billing Assessment: 51 yo female H morbid obesity, hypothyroidism, HTN, recent right ankle fracture presenting with sepsis and RLE cellulitis suspicion for group A strep given development of bullae. Cultures negative. Currently clindamycin. - Patient Problems (1) Cellulitis Current Visit: Yes Status: Acute Code(s): L03.90 - CELLULITIS, UNSPECIFIED SNOMED Code(s): 964851688 Comment: stable Suspicion for group A strep cellulitis. Was able to touch base with ID. s/p vancomycin and zosyn continue IV clindamycin for few more days per ID, then 7 days po. Currently 900mg q8hr. CRP marked elevated 370 on admission, now improved 315. Xray of lower extremity with soft tissue swelling, no focal ostial abnormality. CT lower extremity with no drainable fluid collections of noted gas. CK wnl. Pt thinks may have scratched herself on pallet or side of bed but not clear on timing. Also remote cat scratch (2) Sepsis Current Visit: Yes Status: Acute Comment: On presentation marked leukocytosis (32.6) now improving mild lactic acidosis, resolved tachycardia, low grade fever (resolved). Source cellulitis RLE suspected. Blood Cultures and bullae fluid culture NGTD continue clinda (3) HTN (hypertension) Current Visit: Yes Status: Acute Code(s): I10 - ESSENTIAL (PRIMARY) HYPERTENSION SNOMED Code(s): 58209003 Comment: hold home olmesartan 20mg daily in setting of sepsis. SBP mid 90s on admission. SBP 150s, restart losartan 50mg (4) Hypothyroidism Current Visit: Yes Status: Acute Code(s): E03.9 - HYPOTHYROIDISM, UNSPECIFIED SNOMED Code(s): 04804211 Comment: continue synthroid 75mcg. Status and Disposition: medicine inpatient. On IV antibiotics. Needs continued IV tx and observation given risk for moribidity/mortality Attending: Willy Smart
[2017-08-10] MEDS: LORazepam TAB(*) 0.5 MG PO PRN (20:46)
--- NOTE | 2017-08-10 21:47 | CONS ---
CONSULTATION REPORT: DATE OF CONSULT: 08/10/17 REQUESTING PHYSICIAN: Dr. Smart. CONSULTING SERVICE: Infectious Disease. REASON FOR CONSULTATION: Right leg cellulitis, severe. IMPRESSION: 1. Right lower leg cellulitis with bulla formation and sloughing. This was almost always group A streptococci. She has persistent severe pain, erythema and edema, which is typical for this type of infection. Her leukocytosis is steadily improving and there is some slight contractions in the outlined area. 2. Morbid obesity. 3. History of right ankle fracture, although there is no hardware likely predisposes to this infection and future episodes of cellulitis. 4. Hypothyroidism. RECOMMENDATIONS: 1. Continue clindamycin 900 mg IV every 8 hours for another 48 hours. Continue to elevate the leg. Fine to use a gauze dressing to kept the drainage from her bulla. 2. Given what sounds like a neuropathic degree of pain, could consider gabapentin in addition to what was given already. HISTORY OF PRESENT ILLNESS: This is a 51-year-old woman with obesity, history of right leg cellulitis in the distant past and then right ankle fracture about a year ago. She did not have surgery, but it was due to trauma. She had a couple of days with gradual onset and rapid progression of right leg swelling and pain with fevers, chills, sweats, anorexia at home. She came to the hospital on . She was afebrile, but her white blood cell count was 32,000. She was on vancomycin and Zosyn. I discussed the case with Dr. Smart yesterday and recommended changing to clindamycin, which was done. He had also obtained a CAT scan that showed soft tissue edema and superficial bulla. Bulla had formed over the last 3 to 4 days. She has had some serous fluid draining from them. She has had severe right leg pain and swelling. Pain persists at 9/ 10 despite narcotic pain medicines, worse with weightbearing. No pain with movement of the ankle or knee. PAST MEDICAL HISTORY: 1. Hypothyroidism. 2. Hypertension. 3. Right ankle fracture, healed nonoperatively. MEDICATIONS: 1. Tylenol. 2. Albuterol. 3. Clindamycin 900 mg every 8 hours. 4. Docusate. 5. Heparin subcutaneous injection. 6. Levothyroxine. 7. Oxycodone. 8. Zofran. ALLERGIES: BEE VENOM. FAMILY HISTORY: Mother had diabetes, she is . Father had heart disease , . SOCIAL HISTORY: She lives in [place] with her . She is a past smoker. Does not use injection drugs. REVIEW OF SYSTEMS: A 14-point review of systems was negative except as noted above. PHYSICAL EXAM: Vital Signs: Temperature is 36.4, heart rate 80, respiratory rate 20, blood pressure 160/100, oxygen saturation 92% on room air. General: She is awake, not in distress. Neurologic: She is oriented x3. Follows all commands. HEENT: There is no conjunctival hemorrhage. Oropharynx without lesions. Neck is supple without nuchal rigidity. Lymph Nodes: There is no inguinal, axillary, or epitrochlear lymphadenopathy. Heart is regular rate and rhythm without murmurs, rubs, or gallops. Lungs: Clear to auscultation bilaterally. Abdomen: Soft, nontender, and nondistended. There are bowel sounds present. Skin: Right leg, there is diffuse edema and half way down the lower leg. There is diffuse erythema extending to the mid toes. There are some bullae formation, the largest about 3 cm on the medial leg with serous fluid. There is no crepitus or fluctuance. There is diffuse tenderness to palpation. Musculoskeletal: There is no spine tenderness to palpation or joint synovitis. DIAGNOSTIC STUDIES/LAB DATA: White blood cell count 12, hemoglobin 9, platelets 328, creatinine is 0.8, CRP 315. Please see impressions and recommendations outlined above, which I have discussed with Dr. Smart. Thank you for asking me to see Ms. Smith in consultation. [id number]/[facility] #: [id number] ZAN
[2017-08-11] MEDS: Morphine INJ* 4 MG/ML 1 ML CARPUJECT IV PRN ×3 (04:32→14:00)
[2017-08-11] MEDS: oxyCODONE/Acetamin 5/325 MG* TAB PO PRN ×3 (06:03→21:21)
[2017-08-11] MEDS: Heparin VIAL(*) 5000 UNITS/ML VIAL (FIVE THOUSAND) SUBCUT SCH ×3 (06:03→21:23)
[2017-08-11] MEDS: Levothyroxine TAB* 75 MCG TAB PO SCH (06:03)
[2017-08-11] MEDS: Clindamycin 900 MG IVPREMIX(* 900 MG/50 ML SDV IV SCH ×3 (09:03→23:59)
[2017-08-11] MEDS: Losartan TAB* 25 MG PO SCH (09:03)
[2017-08-11] MEDS: LORazepam TAB(*) 0.5 MG PO PRN ×2 (09:03→21:22)
[2017-08-11] MEDS: Nystatin TOP POWDER* 15 GM BTL TOPICAL SCH ×2 (09:04→16:36)
[2017-08-11] MEDS: Polyethylene Glycol 3350* 17 GM PACKET PO SCH (09:04)
--- NOTE | 2017-08-11 17:36 | PN ---
Subjective Date of Service: 08/11/17 Interval History: pain with ambulation. some medial progression. Afebrile, hemodynamically stable. Objective Active Medications: Acetaminophen (Tylenol Tab*) 650 mg PO Q6H PRN PRN Reason: pain/fever Last Admin: 08/10/17 08:26 Dose: 650 mg Albuterol (Ventolin Hfa Inhaler*) 2 puff INH Q4H PRN PRN Reason: SOB/WHEEZING Albuterol/Ipratropium (Duoneb (Albuterol 2.5 Mg/Ipratropium 0.5 Mg)) 1 neb INH Q4H PRN PRN Reason: SOB/WHEEZING Last Admin: 08/10/17 13:43 Dose: 1 neb Docusate Sodium (Colace Cap*) 200 mg PO DAILY PRN PRN Reason: CONSTIPATION Last Admin: 08/08/17 13:52 Dose: 200 mg Gabapentin (Neurontin Cap(*)) 200 mg PO BID [facility] Heparin Sodium (Porcine) (Heparin Vial(*)) 5,000 units SUBCUT Q8HR [facility] Last Admin: 08/11/17 14:00 Dose: 5,000 units Clindamycin HCl/Dextrose (Cleocin 900 Mg Ivpremix (*) Sdv) 900 mg in 50 mls @ 100 mls/hr IV Q8H [facility] Last Admin: 08/11/17 16:33 Dose: 100 mls/hr Levothyroxine Sodium (Synthroid Tab*) 75 mcg PO 0600 [facility] Last Admin: 08/11/17 06:03 Dose: 75 mcg Lorazepam (Ativan Tab(*)) 0.5 mg PO Q6H PRN PRN Reason: ANXIETY Last Admin: 08/11/17 09:03 Dose: 0.5 mg Losartan Potassium (Cozaar Tab*) 50 mg PO DAILY [facility] Last Admin: 08/11/17 09:03 Dose: 50 mg Morphine Sulfate (Morphine Inj (Syringe)*) 4 mg IV Q4H PRN PRN Reason: PAIN Last Admin: 08/11/17 14:00 Dose: 4 mg Mupirocin (Bactroban 2 % Oint*) 1 applic TOPICAL BID [facility] Nystatin (Nystatin Top Powder*) 1 applic TOPICAL QSHIFT [facility] Last Admin: 08/11/17 16:36 Dose: 1 applic Ondansetron HCl (Zofran Inj*) 4 mg IV Q6H PRN PRN Reason: NAUSEA Oxycodone/Acetaminophen (Percocet 5/325 Tab*) 1 tab PO Q4H PRN PRN Reason: PAIN Last Admin: 08/11/17 16:47 Dose: 1 tab Polyethylene Glycol/Electrolytes (Miralax*) 17 gm PO DAILY [facility] Last Admin: 08/11/17 09:04 Dose: 17 gm Vital Signs - 8 hr 08/11/17 08/11/17 08/11/17 09:50 13:21 13:25 Temperature Pulse Rate Respiratory 20 20 20 Rate Blood Pressure (mmHg) O2 Sat by Pulse Oximetry 08/11/17 08/11/17 08/11/17 14:00 15:31 16:41 Temperature 98.2 F Pulse Rate 85 Respiratory 18 22 22 Rate Blood Pressure 159/71 (mmHg) O2 Sat by Pulse 98 Oximetry 08/11/17 16:47 Temperature Pulse Rate Respiratory 22 Rate Blood Pressure (mmHg) O2 Sat by Pulse Oximetry Oxygen Devices in Use Now: None Appearance: NAD, occasionally tearful, jose ramon face. Eyes: No Scleral Icterus, PERRLA Ears/Nose/Mouth/Throat: NL Teeth, Lips, Gums Neck: NL Appearance and Movements; NL JVP, Trachea Midline Respiratory: Symmetrical Chest Expansion and Respiratory Effort, Clear to Auscultation Cardiovascular: NL Sounds; No Murmurs; No JVD, RRR Abdominal: - - morbildy obese Extremities: - - erythema, loose skin vs bullae and yellow drainage of lower right extremity. medial extension Skin: - - as above Neurological: Alert and Oriented x 3, NL Sensation, NL Muscle Strength and Tone Result Diagrams: 08/10/17 10:45 08/09/17 12:21 Additional Lab and Data: Laboratory Results - last 24 hr 08/10/17 10:45 WBC 12.5 H RBC 4.10 Hgb 9.9 L Hct 31 L MCV 76 L MCH 24 L MCHC 32 RDW 17 H Plt Count 328 MPV 8 Neut % (Auto) 75.0 Lymph % (Auto) 13.9 L Pope % (Auto) 5.9 Eos % (Auto) 4.6 Baso % (Auto) 0.6 Absolute Neuts (auto) 9.4 H Absolute Lymphs (auto) 1.7 Absolute Monos (auto) 0.7 Absolute Eos (auto) 0.6 Absolute Basos (auto) 0.1 Absolute Nucleated RBC 0.01 Nucleated RBC % 0.1 Microbiology and Other Data: Microbiology 08/06/17 16:12 Blood Venous Aerobic Blood Culture - Preliminary No Growth Day 4 08/06/17 16:12 Blood Venous Anaerobic Blood Culture - Preliminary No Growth Day 4 08/08/17 16:10 Ankle Right Gram Stain - Final 08/08/17 16:10 Ankle Right Wound Culture - Final No Growth Day 2 08/06/17 17:34 Blood Venous Aerobic Blood Culture - Preliminary No Growth Day 3 08/06/17 17:34 Blood Venous Anaerobic Blood Culture - Preliminary No Growth Day 3 08/07/17 17:30 Nasal Nasal Screen MRSA (PCR)(JOSE) - Final Mrsa Negative Assess/Plan/Problems-Billing Assessment: 51 yo female H morbid obesity, hypothyroidism, HTN, recent right ankle fracture presenting with sepsis and RLE cellulitis suspicion for group A strep given development of bullae. Cultures negative. Currently IV clindamycin. - Patient Problems (1) Cellulitis Current Visit: Yes Status: Acute Code(s): L03.90 - CELLULITIS, UNSPECIFIED SNOMED Code(s): 727092881 Comment: Suspicion for group A strep cellulitis. Appreciate ID recs s/p vancomycin and zosyn continue IV clindamycin for few more days per ID, then 7 days po. Currently 900mg q8hr. this day 3.5 continue IV morphine q6h prn. Add gabapentin 200mg BID bactroban, kerlix and xeroform on open areas. CRP marked elevated 370 on admission, latest 315. Xray of lower extremity with soft tissue swelling, no focal ostial abnormality. CT lower extremity with no drainable fluid collections of noted gas. CK wnl. Pt thinks may have scratched herself on pallet or side of bed but not clear on timing. Also remote cat scratch (2) Sepsis Current Visit: Yes Status: Acute Comment: On presentation marked leukocytosis (32.6) now nearly resolved mild lactic acidosis, resolved tachycardia, low grade fever (resolved). Source cellulitis RLE suspected. Blood Cultures and bullae fluid culture NGTD continue clinda (3) HTN (hypertension) Current Visit: Yes Status: Acute Code(s): I10 - ESSENTIAL (PRIMARY) HYPERTENSION SNOMED Code(s): 58428077 Comment: hold home olmesartan 20mg daily in setting of sepsis. SBP mid 90s on admission. SBP 150s, continue losartan 50mg (4) Hypothyroidism Current Visit: Yes Status: Acute Code(s): E03.9 - HYPOTHYROIDISM, UNSPECIFIED SNOMED Code(s): 43358532 Comment: continue synthroid 75mcg. Status and Disposition: medicine inpatient. On IV antibiotics. Needs continued IV Clinda tx and observation given risk for moribidity/mortality Attending: Willy Smart
[2017-08-11] MEDS: Albuterol/Ipratropium NEB.SOL* Albuterol 2.5 MG/Ipratropium 0.5 MG 3 ML INH PRN (17:56)
[2017-08-11] MEDS: Mupirocin 2% OINT* TUBE TOPICAL SCH (21:20)
[2017-08-11] MEDS: Gabapentin CAP(*) 100 MG PO SCH (21:21)
[2017-08-12] MEDS: Nystatin TOP POWDER* 15 GM BTL TOPICAL SCH ×3 (00:33→16:16)
[2017-08-12] MEDS: Morphine INJ* 4 MG/ML 1 ML CARPUJECT IV PRN (00:44)
[2017-08-12] MEDS: Heparin VIAL(*) 5000 UNITS/ML VIAL (FIVE THOUSAND) SUBCUT SCH ×3 (04:46→20:35)
[2017-08-12] MEDS: Acetaminophen TAB* 325 MG PO PRN (04:46)
[2017-08-12] MEDS: Levothyroxine TAB* 75 MCG TAB PO SCH (04:46)
[2017-08-12] MEDS: Polyethylene Glycol 3350* 17 GM PACKET PO SCH (09:45)
[2017-08-12] MEDS: Clindamycin 900 MG IVPREMIX(* 900 MG/50 ML SDV IV SCH ×2 (09:45→16:09)
[2017-08-12] MEDS: Losartan TAB* 25 MG PO SCH (09:45)
[2017-08-12] MEDS: oxyCODONE/Acetamin 5/325 MG* TAB PO PRN ×2 (09:45→18:41)
[2017-08-12] MEDS: Gabapentin CAP(*) 100 MG PO SCH ×2 (09:45→20:34)
--- NOTE | 2017-08-12 10:26 | PN ---
Subjective Date of Service: 08/12/17 Interval History: breathing okay. pain in foot with ambulation. occasionally tearful. medial superior extension of the rash. afebrile hemodynamically stable. Objective Active Medications: Acetaminophen (Tylenol Tab*) 650 mg PO Q6H PRN PRN Reason: pain/fever Last Admin: 08/12/17 04:46 Dose: 650 mg Albuterol (Ventolin Hfa Inhaler*) 2 puff INH Q4H PRN PRN Reason: SOB/WHEEZING Albuterol/Ipratropium (Duoneb (Albuterol 2.5 Mg/Ipratropium 0.5 Mg)) 1 neb INH Q4H PRN PRN Reason: SOB/WHEEZING Last Admin: 08/11/17 17:56 Dose: 1 neb Docusate Sodium (Colace Cap*) 200 mg PO DAILY PRN PRN Reason: CONSTIPATION Last Admin: 08/08/17 13:52 Dose: 200 mg Gabapentin (Neurontin Cap(*)) 200 mg PO BID [facility] Last Admin: 08/12/17 09:45 Dose: 200 mg Heparin Sodium (Porcine) (Heparin Vial(*)) 5,000 units SUBCUT Q8HR [facility] Last Admin: 08/12/17 04:46 Dose: 5,000 units Clindamycin HCl/Dextrose (Cleocin 900 Mg Ivpremix (*) Sdv) 900 mg in 50 mls @ 100 mls/hr IV Q8H [facility] Last Admin: 08/12/17 09:45 Dose: 100 mls/hr Levothyroxine Sodium (Synthroid Tab*) 75 mcg PO 0600 [facility] Last Admin: 08/12/17 04:46 Dose: 75 mcg Lorazepam (Ativan Tab(*)) 0.5 mg PO Q6H PRN PRN Reason: ANXIETY Last Admin: 08/11/17 21:22 Dose: 0.5 mg Losartan Potassium (Cozaar Tab*) 50 mg PO DAILY [facility] Last Admin: 08/12/17 09:45 Dose: 50 mg Morphine Sulfate (Morphine Inj (Syringe)*) 4 mg IV Q4H PRN PRN Reason: PAIN Last Admin: 08/12/17 00:44 Dose: 4 mg Mupirocin (Bactroban 2 % Oint*) 1 applic TOPICAL BID [facility] Last Admin: 08/11/17 21:20 Dose: 1 applic Nystatin (Nystatin Top Powder*) 1 applic TOPICAL QSHIFT [facility] Last Admin: 08/12/17 09:46 Dose: 1 applic Ondansetron HCl (Zofran Inj*) 4 mg IV Q6H PRN PRN Reason: NAUSEA Oxycodone/Acetaminophen (Percocet 5/325 Tab*) 1 tab PO Q4H PRN PRN Reason: PAIN Last Admin: 08/12/17 09:45 Dose: 1 tab Polyethylene Glycol/Electrolytes (Miralax*) 17 gm PO DAILY [facility] Last Admin: 08/12/17 09:45 Dose: 17 gm Vital Signs - 8 hr 08/12/17 08/12/17 08/12/17 03:35 08:35 09:45 Temperature 98.4 F Pulse Rate 90 90 Respiratory 18 18 20 Rate Blood Pressure 165/82 (mmHg) O2 Sat by Pulse 94 94 Oximetry Oxygen Devices in Use Now: None Appearance: NAD, occasionally tearful Eyes: No Scleral Icterus, PERRLA Respiratory: Symmetrical Chest Expansion and Respiratory Effort, Clear to Auscultation Cardiovascular: NL Sounds; No Murmurs; No JVD, RRR Abdominal: - - morbid obesity Extremities: No Edema, - - erythematous rash with popped bullae and loose outer dermis on right lower calf. some medial extension since yesterday. xeroform wrapped. not malodorous Result Diagrams: 08/10/17 10:45 08/09/17 12:21 Additional Lab and Data: Laboratory Results - last 24 hr 08/10/17 10:45 WBC 12.5 H RBC 4.10 Hgb 9.9 L Hct 31 L MCV 76 L MCH 24 L MCHC 32 RDW 17 H Plt Count 328 MPV 8 Neut % (Auto) 75.0 Lymph % (Auto) 13.9 L [place] % (Auto) 5.9 Eos % (Auto) 4.6 Baso % (Auto) 0.6 Absolute Neuts (auto) 9.4 H Absolute Lymphs (auto) 1.7 Absolute Monos (auto) 0.7 Absolute Eos (auto) 0.6 Absolute Basos (auto) 0.1 Absolute Nucleated RBC 0.01 Nucleated RBC % 0.1 Microbiology and Other Data: Microbiology 08/06/17 16:12 Blood Venous Aerobic Blood Culture - Preliminary No Growth Day 4 08/06/17 16:12 Blood Venous Anaerobic Blood Culture - Preliminary No Growth Day 4 08/08/17 16:10 Ankle Right Gram Stain - Final 08/08/17 16:10 Ankle Right Wound Culture - Final No Growth Day 2 08/06/17 17:34 Blood Venous Aerobic Blood Culture - Preliminary No Growth Day 3 08/06/17 17:34 Blood Venous Anaerobic Blood Culture - Preliminary No Growth Day 3 08/07/17 17:30 Nasal Nasal Screen MRSA (PCR)(JOSE) - Final Mrsa Negative Assess/Plan/Problems-Billing Assessment: 51 yo female H morbid obesity, hypothyroidism, HTN, recent right ankle fracture presenting with sepsis and RLE cellulitis suspicion for group A strep given development of bullae. Cultures negative. Currently IV clindamycin. - Patient Problems (1) Cellulitis Current Visit: Yes Status: Acute Code(s): L03.90 - CELLULITIS, UNSPECIFIED SNOMED Code(s): 000994922 Comment: Suspicion for group A strep cellulitis. Appreciate ID recs s/p vancomycin and zosyn continue IV clindamycin until atleast 08/13, then 7 days po. Currently 900mg q8hr. this day 4.5 continue IV morphine q6h prn. increase gabapentin 200mg BID to 300mg BID bactroban, kerlix and xeroform on open areas. CRP marked elevated 370 on admission, latest 315. Xray of lower extremity with soft tissue swelling, no focal ostial abnormality. CT lower extremity with no drainable fluid collections of noted gas. CK wnl. Pt thinks may have scratched herself on pallet or side of bed but not clear on timing. Also remote cat scratch (2) Sepsis Current Visit: Yes Status: Acute Comment: On presentation marked leukocytosis (32.6) now nearly resolved mild lactic acidosis, resolved tachycardia, low grade fever (resolved). Source cellulitis RLE suspected. Blood Cultures and bullae fluid culture NGTD continue clinda (3) HTN (hypertension) Current Visit: Yes Status: Acute Code(s): I10 - ESSENTIAL (PRIMARY) HYPERTENSION SNOMED Code(s): 48593372 Comment: hold home olmesartan 20mg daily in setting of sepsis. SBP mid 90s on admission. SBP 150s, continue losartan 50mg (4) Hypothyroidism Current Visit: Yes Status: Acute Code(s): E03.9 - HYPOTHYROIDISM, UNSPECIFIED SNOMED Code(s): 30526510 Comment: continue synthroid 75mcg. Status and Disposition: medicine inpatient. On IV antibiotics. Needs continued IV Clinda tx and observation given risk for moribidity/mortality Attending: Willy Smart
[2017-08-12] MEDS: Mupirocin 2% OINT* TUBE TOPICAL SCH (11:34)
[2017-08-12] MEDS: Morphine INJ* 2 MG/ML 1 ML SYRINGE (TWO MG - NEW SYRINGE VERSION) IV PRN ×3 (11:34→20:35)
[2017-08-12] MEDS: LORazepam TAB(*) 0.5 MG PO PRN (18:41)
[2017-08-13] MEDS: Morphine INJ* 2 MG/ML 1 ML SYRINGE (TWO MG - NEW SYRINGE VERSION) IV PRN ×2 (00:41→11:29)
[2017-08-13] MEDS: Clindamycin 900 MG IVPREMIX(* 900 MG/50 ML SDV IV SCH ×2 (00:46→09:16)
[2017-08-13] MEDS: Mupirocin 2% OINT* TUBE TOPICAL SCH ×3 (00:48→21:34)
[2017-08-13] MEDS: Nystatin TOP POWDER* 15 GM BTL TOPICAL SCH ×4 (00:49→23:52)
[2017-08-13] MEDS: Heparin VIAL(*) 5000 UNITS/ML VIAL (FIVE THOUSAND) SUBCUT SCH ×3 (06:18→21:34)
[2017-08-13] MEDS: Levothyroxine TAB* 75 MCG TAB PO SCH (06:18)
[2017-08-13] MEDS: oxyCODONE/Acetamin 5/325 MG* TAB PO PRN ×3 (06:22→21:31)
[2017-08-13] MEDS: Gabapentin CAP(*) 100 MG PO SCH ×2 (09:14→21:31)
[2017-08-13] MEDS: Losartan TAB* 25 MG PO SCH (09:14)
[2017-08-13] MEDS: Polyethylene Glycol 3350* 17 GM PACKET PO SCH (09:14)
[2017-08-13] MEDS: LORazepam TAB(*) 0.5 MG PO PRN (11:43)
--- NOTE | 2017-08-13 12:19 | PN ---
Subjective Date of Service: 08/13/17 Interval History: Pain R leg only slightly better than yesterday. No bowel c/o. Walking is painful for her. Objective Active Medications: Acetaminophen (Tylenol Tab*) 650 mg PO Q6H PRN PRN Reason: pain/fever Last Admin: 08/12/17 04:46 Dose: 650 mg Albuterol (Ventolin Hfa Inhaler*) 2 puff INH Q4H PRN PRN Reason: SOB/WHEEZING Albuterol/Ipratropium (Duoneb (Albuterol 2.5 Mg/Ipratropium 0.5 Mg)) 1 neb INH Q4H PRN PRN Reason: SOB/WHEEZING Last Admin: 08/11/17 17:56 Dose: 1 neb Amoxicillin/Clavulanate Potassium (Augmentin Tab*) 875 mg PO BID [facility] Docusate Sodium (Colace Cap*) 200 mg PO DAILY PRN PRN Reason: CONSTIPATION Last Admin: 08/08/17 13:52 Dose: 200 mg Gabapentin (Neurontin Cap(*)) 300 mg PO BID [facility] Last Admin: 08/13/17 09:14 Dose: 300 mg Heparin Sodium (Porcine) (Heparin Vial(*)) 5,000 units SUBCUT Q8HR [facility] Last Admin: 08/13/17 06:18 Dose: 5,000 units Levothyroxine Sodium (Synthroid Tab*) 75 mcg PO 0600 [facility] Last Admin: 08/13/17 06:18 Dose: 75 mcg Lorazepam (Ativan Tab(*)) 0.5 mg PO Q6H PRN PRN Reason: ANXIETY Last Admin: 08/13/17 11:43 Dose: 0.5 mg Losartan Potassium (Cozaar Tab*) 50 mg PO DAILY [facility] Last Admin: 08/13/17 09:14 Dose: 50 mg Mupirocin (Bactroban 2 % Oint*) 1 applic TOPICAL BID [facility] Last Admin: 08/13/17 09:15 Dose: 1 applic Nystatin (Nystatin Top Powder*) 1 applic TOPICAL QSHIFT [facility] Last Admin: 08/13/17 09:15 Dose: 1 applic Ondansetron HCl (Zofran Inj*) 4 mg IV Q6H PRN PRN Reason: NAUSEA Oxycodone HCl (Oxycontin(*)) 10 mg PO Q12HR [facility] Oxycodone/Acetaminophen (Percocet 5/325 Tab*) 1 tab PO Q4H PRN PRN Reason: PAIN Last Admin: 08/13/17 11:43 Dose: 1 tab Polyethylene Glycol/Electrolytes (Miralax*) 17 gm PO DAILY [facility] Last Admin: 08/13/17 09:14 Dose: 17 gm Vital Signs - 8 hr 08/13/17 08/13/17 08/13/17 06:22 07:52 08:25 Temperature 98.9 F Pulse Rate 93 Respiratory 20 16 22 Rate Blood Pressure 126/84 (mmHg) O2 Sat by Pulse 97 Oximetry 08/13/17 08/13/17 08/13/17 08:30 09:14 11:43 Temperature Pulse Rate 83 Respiratory 18 22 22 Rate Blood Pressure (mmHg) O2 Sat by Pulse 93 Oximetry Oxygen Devices in Use Now: None Appearance: Supine in bed. Alert, in fair spirits. Looks comfortable. Eyes: No Scleral Icterus Respiratory: Symmetrical Chest Expansion and Respiratory Effort, Clear to Auscultation, Clear to Percussion Cardiovascular: NL Sounds; No Murmurs; No JVD, RRR, No Edema, - Extremities: No Clubbing, Cyanosis, - - massive edema LE's, 1-2+ edema hands. Multiple bullae with clear fluid R leg, mod erythema to knee. Neurological: Alert and Oriented x 3, NL Sensation Result Diagrams: 08/10/17 10:45 08/09/17 12:21 Additional Lab and Data: Laboratory Results - last 24 hr 08/10/17 10:45 WBC 12.5 H RBC 4.10 Hgb 9.9 L Hct 31 L MCV 76 L MCH 24 L MCHC 32 RDW 17 H Plt Count 328 MPV 8 Neut % (Auto) 75.0 Lymph % (Auto) 13.9 L [place] % (Auto) 5.9 Eos % (Auto) 4.6 Baso % (Auto) 0.6 Absolute Neuts (auto) 9.4 H Absolute Lymphs (auto) 1.7 Absolute Monos (auto) 0.7 Absolute Eos (auto) 0.6 Absolute Basos (auto) 0.1 Absolute Nucleated RBC 0.01 Nucleated RBC % 0.1 Microbiology and Other Data: Microbiology 08/06/17 16:12 Blood Venous Aerobic Blood Culture - Preliminary No Growth Day 4 08/06/17 16:12 Blood Venous Anaerobic Blood Culture - Preliminary No Growth Day 4 08/08/17 16:10 Ankle Right Gram Stain - Final 08/08/17 16:10 Ankle Right Wound Culture - Final No Growth Day 2 08/06/17 17:34 Blood Venous Aerobic Blood Culture - Preliminary No Growth Day 3 08/06/17 17:34 Blood Venous Anaerobic Blood Culture - Preliminary No Growth Day 3 08/07/17 17:30 Nasal Nasal Screen MRSA (PCR)(JOSE) - Final Mrsa Negative Assess/Plan/Problems-Billing Assessment: 51 yo female H morbid obesity, hypothyroidism, HTN, recent right ankle fracture presenting with sepsis and RLE cellulitis suspicion for group A strep given development of bullae. Cultures negative. Currently IV clindamycin. - Patient Problems (1) Cellulitis Current Visit: Yes Status: Acute Code(s): L03.90 - CELLULITIS, UNSPECIFIED SNOMED Code(s): 330123742 Comment: Suspicion for strep cellulitis. Appreciate ID recs s/p vancomycin and zosyn Finished 5 days IV clindamycin. No IV access at present, will change to po amox /clav Oxycodone SR 10 mg bid start AM 15, oxycodone 5 mg po q 4 hr PRN. bactroban, kerlix and xeroform on open areas. Repeat CRP 08/14. CRP marked elevated 370 on admission, latest 315. Xray of lower extremity with soft tissue swelling, no focal ostial abnormality. CT lower extremity with no drainable fluid collections of noted gas. CK wnl. Pt thinks may have scratched herself on pallet or side of bed but not clear on timing. Also remote cat scratch (2) Hypothyroidism Current Visit: Yes Status: Acute Code(s): E03.9 - HYPOTHYROIDISM, UNSPECIFIED SNOMED Code(s): 24473046 Comment: continue synthroid 75mcg. TSH 08/14. (3) HTN (hypertension) Current Visit: Yes Status: Acute Code(s): I10 - ESSENTIAL (PRIMARY) HYPERTENSION SNOMED Code(s): 83561727 Comment: hold home olmesartan 20mg daily in setting of sepsis. SBP mid 90s on admission. SBP 150s, continue losartan 50mg (4) Morbid obesity Current Visit: Yes Status: Acute Code(s): E66.01 - MORBID (SEVERE) OBESITY DUE TO EXCESS CALORIES SNOMED Code(s): 734410142 Comment: BMI 68.6 Status and Disposition: medicine inpatient. On IV antibiotics. Needs continued IV Clinda tx and observation given risk for moribidity/mortality
[2017-08-13] MEDS: oxyCODONE SR TAB(*) 10 MG TAB.SR PO SCH ×2 (12:51→21:31)
[2017-08-13] MEDS: Amoxicillin/Clavulanate TAB* 875 MG PO SCH ×2 (12:52→21:30)
[2017-08-13] MEDS: Acetaminophen TAB* 325 MG PO PRN (15:13)
[2017-08-14] MEDS: oxyCODONE/Acetamin 5/325 MG* TAB PO PRN ×3 (05:37→16:31)
[2017-08-14] MEDS: Heparin VIAL(*) 5000 UNITS/ML VIAL (FIVE THOUSAND) SUBCUT SCH ×3 (05:37→21:41)
[2017-08-14] MEDS: Levothyroxine TAB* 75 MCG TAB PO SCH (05:37)
--- NOTE | 2017-08-14 09:02 | PN ---
Subjective Date of Service: 08/14/17 Interval History: Pain control OK. No bowel c/o. She can walk to the [place] but states that at home she had to crawl up the stairs because her leg hurt. No new c/o. Objective Active Medications: Acetaminophen (Tylenol Tab*) 650 mg PO Q6H PRN PRN Reason: pain/fever Last Admin: 08/13/17 15:13 Dose: 650 mg Albuterol (Ventolin Hfa Inhaler*) 2 puff INH Q4H PRN PRN Reason: SOB/WHEEZING Albuterol/Ipratropium (Duoneb (Albuterol 2.5 Mg/Ipratropium 0.5 Mg)) 1 neb INH Q4H PRN PRN Reason: SOB/WHEEZING Last Admin: 08/11/17 17:56 Dose: 1 neb Amoxicillin/Clavulanate Potassium (Augmentin Tab*) 875 mg PO BID [facility] Last Admin: 08/13/17 21:30 Dose: 875 mg Docusate Sodium (Colace Cap*) 200 mg PO DAILY PRN PRN Reason: CONSTIPATION Last Admin: 08/08/17 13:52 Dose: 200 mg Gabapentin (Neurontin Cap(*)) 300 mg PO BID [facility] Last Admin: 08/13/17 21:31 Dose: 300 mg Heparin Sodium (Porcine) (Heparin Vial(*)) 5,000 units SUBCUT Q8HR [facility] Last Admin: 08/14/17 05:37 Dose: 5,000 units Levothyroxine Sodium (Synthroid Tab*) 75 mcg PO 0600 [facility] Last Admin: 08/14/17 05:37 Dose: 75 mcg Lorazepam (Ativan Tab(*)) 0.5 mg PO Q6H PRN PRN Reason: ANXIETY Last Admin: 08/13/17 11:43 Dose: 0.5 mg Losartan Potassium (Cozaar Tab*) 50 mg PO DAILY [facility] Last Admin: 08/13/17 09:14 Dose: 50 mg Mupirocin (Bactroban 2 % Oint*) 1 applic TOPICAL BID [facility] Last Admin: 08/13/17 21:34 Dose: 1 applic Nystatin (Nystatin Top Powder*) 1 applic TOPICAL QSHIFT [facility] Last Admin: 08/13/17 23:52 Dose: Not Given Ondansetron HCl (Zofran Inj*) 4 mg IV Q6H PRN PRN Reason: NAUSEA Oxycodone HCl (Oxycontin(*)) 10 mg PO Q12HR [facility] Last Admin: 08/13/17 21:31 Dose: 10 mg Oxycodone HCl (Roxycodone Tab*) 5 mg PO Q4H PRN PRN Reason: PAIN Oxycodone/Acetaminophen (Percocet 5/325 Tab*) 1 tab PO Q4H PRN PRN Reason: PAIN Last Admin: 08/14/17 05:37 Dose: 1 tab Polyethylene Glycol/Electrolytes (Miralax*) 17 gm PO DAILY [facility] Last Admin: 08/13/17 09:14 Dose: 17 gm Vital Signs - 8 hr 08/14/17 08/14/17 08/14/17 03:35 04:07 05:37 Temperature 97.4 F Pulse Rate 94 Respiratory 21 20 Rate Blood Pressure 186/112 143/65 (mmHg) O2 Sat by Pulse 99 Oximetry 08/14/17 07:15 Temperature 98.1 F Pulse Rate 89 Respiratory 18 Rate Blood Pressure 128/53 (mmHg) O2 Sat by Pulse 94 Oximetry Oxygen Devices in Use Now: None Appearance: Partly up in bed. In fair spirits. Looks comfortable. Eyes: No Scleral Icterus Extremities: - - RLE bandaged. No edema L leg. Neurological: Alert and Oriented x 3, NL Sensation Result Diagrams: 08/14/17 09:20 08/09/17 12:21 Additional Lab and Data: Laboratory Results - last 24 hr 08/10/17 10:45 WBC 12.5 H RBC 4.10 Hgb 9.9 L Hct 31 L MCV 76 L MCH 24 L MCHC 32 RDW 17 H Plt Count 328 MPV 8 Neut % (Auto) 75.0 Lymph % (Auto) 13.9 L [place] % (Auto) 5.9 Eos % (Auto) 4.6 Baso % (Auto) 0.6 Absolute Neuts (auto) 9.4 H Absolute Lymphs (auto) 1.7 Absolute Monos (auto) 0.7 Absolute Eos (auto) 0.6 Absolute Basos (auto) 0.1 Absolute Nucleated RBC 0.01 Nucleated RBC % 0.1 Microbiology and Other Data: Microbiology 08/06/17 16:12 Blood Venous Aerobic Blood Culture - Preliminary No Growth Day 4 08/06/17 16:12 Blood Venous Anaerobic Blood Culture - Preliminary No Growth Day 4 08/08/17 16:10 Ankle Right Gram Stain - Final 08/08/17 16:10 Ankle Right Wound Culture - Final No Growth Day 2 08/06/17 17:34 Blood Venous Aerobic Blood Culture - Preliminary No Growth Day 3 08/06/17 17:34 Blood Venous Anaerobic Blood Culture - Preliminary No Growth Day 3 08/07/17 17:30 Nasal Nasal Screen MRSA (PCR)(JOSE) - Final Mrsa Negative Assess/Plan/Problems-Billing Assessment: 51 yo female H morbid obesity, hypothyroidism, HTN, recent right ankle fracture presenting with sepsis and RLE cellulitis suspicion for group A strep given development of bullae. Cultures negative. Currently IV clindamycin. - Patient Problems (1) Cellulitis Current Visit: Yes Status: Acute Code(s): L03.90 - CELLULITIS, UNSPECIFIED SNOMED Code(s): 954197741 Comment: Suspicion for strep cellulitis. Appreciate ID recs s/p vancomycin and zosyn Finished 5 days IV clindamycin. Continue po amox/clav Oxycodone SR 10 mg bid start AM 15, oxycodone 5 mg po q 4 hr PRN. bactroban, kerlix and xeroform on open areas. 08/14 down to 103. CRP marked elevated 370 on admission, latest 315. Xray of lower extremity with soft tissue swelling, no focal ostial abnormality. CT lower extremity with no drainable fluid collections of noted gas. CK wnl. Pt thinks may have scratched herself on pallet or side of bed but not clear on timing. Also remote cat scratch (2) Hypothyroidism Current Visit: Yes Status: Acute Code(s): E03.9 - HYPOTHYROIDISM, UNSPECIFIED SNOMED Code(s): 43221764 Comment: continue synthroid 75mcg. TSH 08/14 wnl. (3) HTN (hypertension) Current Visit: Yes Status: Acute Code(s): I10 - ESSENTIAL (PRIMARY) HYPERTENSION SNOMED Code(s): 57897620 Comment: hold home olmesartan 20mg daily in setting of sepsis. SBP mid 90s on admission. SBP 150s, continue losartan 50mg (4) Morbid obesity Current Visit: Yes Status: Acute Code(s): E66.01 - MORBID (SEVERE) OBESITY DUE TO EXCESS CALORIES SNOMED Code(s): 694185462 Comment: BMI 68.6 Status and Disposition: medicine inpatient. On IV antibiotics. Needs continued IV Clinda tx and observation given risk for moribidity/mortality
[2017-08-14 09:51] LABS: Hematocrit 33 % (35-47); Hemoglobin 10.6 g/dl (12.0-16.0); Mean Corpuscular HGB Conc 32 g/dl (31-36); Mean Corpuscular Hemoglobin 25 pg (27-31); Mean Corpuscular Volume 76 fL (80-97); Mean Platelet Volume 7 um3 (7.4-10.4); Platelet Count 482 10^3/ul (150-450); Red Blood Count 4.31 10^6/ul (4.0-5.4); Red Cell Distribution Width 17 % (10.5-15); White Blood Count 13.1 10^3/ul (3.5-10.8)
[2017-08-14] MEDS: Polyethylene Glycol 3350* 17 GM PACKET PO SCH (09:55)
[2017-08-14] MEDS: oxyCODONE SR TAB(*) 10 MG TAB.SR PO SCH ×2 (10:02→21:44)
[2017-08-14] MEDS: Losartan TAB* 25 MG PO SCH (10:03)
[2017-08-14] MEDS: Amoxicillin/Clavulanate TAB* 875 MG PO SCH ×2 (10:04→21:44)
[2017-08-14] MEDS: LORazepam TAB(*) 0.5 MG PO PRN (10:04)
[2017-08-14] MEDS: Mupirocin 2% OINT* TUBE TOPICAL SCH ×2 (10:05→22:20)
[2017-08-14] MEDS: Nystatin TOP POWDER* 15 GM BTL TOPICAL SCH ×2 (10:05→15:46)
[2017-08-14 10:47] LABS: Monocytes % 3 % (0-13)
[2017-08-14] MEDS: Gabapentin CAP(*) 100 MG PO SCH ×2 (12:34→21:43)
[2017-08-14] MEDS: Acetaminophen TAB* 325 MG PO PRN ×2 (13:12→19:35)
[2017-08-14] MEDS: oxyCODONE TAB* 5 MG TAB PO PRN (18:57)
[2017-08-15] MEDS: Nystatin TOP POWDER* 15 GM BTL TOPICAL SCH ×3 (00:52→15:57)
[2017-08-15] MEDS: oxyCODONE TAB* 5 MG TAB PO PRN ×2 (04:33→18:52)
[2017-08-15] MEDS: Levothyroxine TAB* 75 MCG TAB PO SCH (04:34)
[2017-08-15] MEDS: Heparin VIAL(*) 5000 UNITS/ML VIAL (FIVE THOUSAND) SUBCUT SCH ×3 (04:35→22:00)
[2017-08-15] MEDS: Polyethylene Glycol 3350* 17 GM PACKET PO SCH (07:52)
[2017-08-15] MEDS: Gabapentin CAP(*) 100 MG PO SCH ×2 (07:54→21:59)
[2017-08-15] MEDS: Amoxicillin/Clavulanate TAB* 875 MG PO SCH ×2 (07:54→21:58)
[2017-08-15] MEDS: Mupirocin 2% OINT* TUBE TOPICAL SCH ×2 (07:55→22:00)
[2017-08-15] MEDS: Losartan TAB* 25 MG PO SCH (07:55)
[2017-08-15] MEDS: oxyCODONE SR TAB(*) 10 MG TAB.SR PO SCH ×2 (07:55→21:58)
[2017-08-15] MEDS: oxyCODONE/Acetamin 5/325 MG* TAB PO PRN ×3 (12:03→19:52)
--- NOTE | 2017-08-15 16:29 | PN ---
Subjective Date of Service: 08/15/17 Interval History: No new c/o. She is very anxious to go home. Objective Active Medications: Acetaminophen (Tylenol Tab*) 650 mg PO Q6H PRN PRN Reason: pain/fever Last Admin: 08/14/17 19:35 Dose: 650 mg Albuterol (Ventolin Hfa Inhaler*) 2 puff INH Q4H PRN PRN Reason: SOB/WHEEZING Albuterol/Ipratropium (Duoneb (Albuterol 2.5 Mg/Ipratropium 0.5 Mg)) 1 neb INH Q4H PRN PRN Reason: SOB/WHEEZING Last Admin: 08/11/17 17:56 Dose: 1 neb Amoxicillin/Clavulanate Potassium (Augmentin Tab*) 875 mg PO BID [facility] Last Admin: 08/15/17 07:54 Dose: 875 mg Docusate Sodium (Colace Cap*) 200 mg PO DAILY PRN PRN Reason: CONSTIPATION Last Admin: 08/08/17 13:52 Dose: 200 mg Gabapentin (Neurontin Cap(*)) 200 mg PO BID [facility] Last Admin: 08/15/17 07:54 Dose: 200 mg Heparin Sodium (Porcine) (Heparin Vial(*)) 5,000 units SUBCUT Q8HR [facility] Last Admin: 08/15/17 13:30 Dose: 5,000 units Levothyroxine Sodium (Synthroid Tab*) 75 mcg PO 0600 [facility] Last Admin: 08/15/17 04:34 Dose: 75 mcg Lorazepam (Ativan Tab(*)) 0.5 mg PO Q6H PRN PRN Reason: ANXIETY Last Admin: 08/14/17 10:04 Dose: 0.5 mg Losartan Potassium (Cozaar Tab*) 50 mg PO DAILY [facility] Last Admin: 08/15/17 07:55 Dose: 50 mg Mupirocin (Bactroban 2 % Oint*) 1 applic TOPICAL BID [facility] Last Admin: 08/15/17 07:55 Dose: 1 applic Nystatin (Nystatin Top Powder*) 1 applic TOPICAL QSHIFT [facility] Last Admin: 08/15/17 15:57 Dose: 1 applic Ondansetron HCl (Zofran Inj*) 4 mg IV Q6H PRN PRN Reason: NAUSEA Oxycodone HCl (Oxycontin(*)) 10 mg PO Q12HR [facility] Last Admin: 08/15/17 07:55 Dose: 10 mg Oxycodone HCl (Roxycodone Tab*) 5 mg PO Q4H PRN PRN Reason: PAIN Last Admin: 08/15/17 04:33 Dose: 5 mg Oxycodone/Acetaminophen (Percocet 5/325 Tab*) 1 tab PO Q4H PRN PRN Reason: PAIN Last Admin: 08/15/17 15:56 Dose: 1 tab Polyethylene Glycol/Electrolytes (Miralax*) 17 gm PO DAILY [facility] Last Admin: 08/15/17 07:52 Dose: Not Given Torsemide (Demadex*) 40 mg PO DAILY [facility] Vital Signs - 8 hr 08/15/17 08/15/17 08/15/17 11:33 11:42 12:03 Temperature 97.9 F Pulse Rate 92 Respiratory 17 16 18 Rate Blood Pressure 145/60 (mmHg) O2 Sat by Pulse 90 Oximetry 08/15/17 08/15/17 08/15/17 15:11 15:49 15:56 Temperature 97.5 F Pulse Rate 87 Respiratory 18 16 18 Rate Blood Pressure 148/83 (mmHg) O2 Sat by Pulse 97 Oximetry Oxygen Devices in Use Now: None Appearance: Alert, partly up in bed. Emotionally labile. Looks comfortable. Eyes: No Scleral Icterus Extremities: No Clubbing, Cyanosis, - - 1+ edema all extremities Skin: No Nodules or Sclerosis, - - R leg bandaged. Mild erythema in small patches above dressing. Neurological: Alert and Oriented x 3, NL Sensation Result Diagrams: 08/14/17 09:20 08/09/17 12:21 Additional Lab and Data: Laboratory Results - last 24 hr 08/10/17 10:45 WBC 12.5 H RBC 4.10 Hgb 9.9 L Hct 31 L MCV 76 L MCH 24 L MCHC 32 RDW 17 H Plt Count 328 MPV 8 Neut % (Auto) 75.0 Lymph % (Auto) 13.9 L [place] % (Auto) 5.9 Eos % (Auto) 4.6 Baso % (Auto) 0.6 Absolute Neuts (auto) 9.4 H Absolute Lymphs (auto) 1.7 Absolute Monos (auto) 0.7 Absolute Eos (auto) 0.6 Absolute Basos (auto) 0.1 Absolute Nucleated RBC 0.01 Nucleated RBC % 0.1 Microbiology and Other Data: Microbiology 08/06/17 16:12 Blood Venous Aerobic Blood Culture - Preliminary No Growth Day 4 08/06/17 16:12 Blood Venous Anaerobic Blood Culture - Preliminary No Growth Day 4 08/08/17 16:10 Ankle Right Gram Stain - Final 08/08/17 16:10 Ankle Right Wound Culture - Final No Growth Day 2 08/06/17 17:34 Blood Venous Aerobic Blood Culture - Preliminary No Growth Day 3 08/06/17 17:34 Blood Venous Anaerobic Blood Culture - Preliminary No Growth Day 3 08/07/17 17:30 Nasal Nasal Screen MRSA (PCR)(JOSE) - Final Mrsa Negative Assess/Plan/Problems-Billing Assessment: 51 yo female PMH morbid obesity, hypothyroidism, HTN, recent right ankle fracture presenting with sepsis and RLE cellulitis suspicion for group A strep given development of bullae. Cultures negative. Currently IV clindamycin. - Patient Problems (1) Cellulitis Current Visit: Yes Status: Acute Code(s): L03.90 - CELLULITIS, UNSPECIFIED SNOMED Code(s): 589911325 Comment: Suspicion for strep cellulitis. Appreciate ID recs s/p vancomycin and zosyn Finished 5 days IV clindamycin. Continue po amox/clav Oxycodone SR 10 mg bid start AM 1/5, oxycodone 5 mg po q 4 hr PRN. bactroban, kerlix and xeroform on open areas. CRP / down to 103. Start torsemide 40 mg daily PM 1/7. BMP 1/8 CRP marked elevated 370 on admission, latest 315. Xray of lower extremity with soft tissue swelling, no focal ostial abnormality. CT lower extremity with no drainable fluid collections of noted gas. CK wnl. Pt thinks may have scratched herself on pallet or side of bed but not clear on timing. Also remote cat scratch (2) Hypothyroidism Current Visit: Yes Status: Acute Code(s): E03.9 - HYPOTHYROIDISM, UNSPECIFIED SNOMED Code(s): 82212359 Comment: continue synthroid 75mcg. TSH / wnl. (3) HTN (hypertension) Current Visit: Yes Status: Acute Code(s): I10 - ESSENTIAL (PRIMARY) HYPERTENSION SNOMED Code(s): 42266576 Comment: hold home olmesartan 20mg daily in setting of sepsis. SBP mid 90s on admission. SBP 150s, continue losartan 50mg (4) Morbid obesity Current Visit: Yes Status: Acute Code(s): E66.01 - MORBID (SEVERE) OBESITY DUE TO EXCESS CALORIES SNOMED Code(s): 781587813 Comment: BMI 68.6 Status and Disposition: medicine inpatient. On IV antibiotics. Needs continued IV Clinda tx and observation given risk for moribidity/mortality
[2017-08-15] MEDS: Torsemide TAB* 20 MG PO SCH (16:52)
[2017-08-16] MEDS: Nystatin TOP POWDER* 15 GM BTL TOPICAL SCH ×2 (00:18→10:30)
[2017-08-16] MEDS: Heparin VIAL(*) 5000 UNITS/ML VIAL (FIVE THOUSAND) SUBCUT SCH ×2 (05:26→15:17)
[2017-08-16] MEDS: Levothyroxine TAB* 75 MCG TAB PO SCH (05:26)
[2017-08-16 09:05] LABS: EGFR Non-African American 57.8 (>60)
[2017-08-16] MEDS: oxyCODONE SR TAB(*) 10 MG TAB.SR PO SCH (10:26)
[2017-08-16] MEDS: Amoxicillin/Clavulanate TAB* 875 MG PO SCH (10:27)
[2017-08-16] MEDS: Torsemide TAB* 20 MG PO SCH (10:27)
[2017-08-16] MEDS: Losartan TAB* 25 MG PO SCH (10:27)
[2017-08-16] MEDS: Gabapentin CAP(*) 100 MG PO SCH (10:27)
[2017-08-16] MEDS: Mupirocin 2% OINT* TUBE TOPICAL SCH (10:28)
[2017-08-16] MEDS: Polyethylene Glycol 3350* 17 GM PACKET PO SCH (10:29)
[2017-08-16] MEDS: oxyCODONE/Acetamin 5/325 MG* TAB PO PRN (13:22)
--- NOTE | 2017-08-16 14:27 | PN ---
"Progress Note - Progress Note Date of Service: 08/16/17 Note: Time spent on discharge 45 minutes. Search Terms: hector fernandez, 1965 Search Date: 08/16/2017 02:26:43 PM The Drug Utilization Report below displays all of the controlled substance prescriptions, if any, that your patient has filled in the last twelve months. The information displayed on this report is compiled from pharmacy submissions to the Department, and accurately reflects the information as submitted by the pharmacies. This report was requested by: Bishop Dial | Reference #: [id number] Others' Prescriptions Patient Name: Hector Fernandez Date: 1965 Address: [address] [place] [address] [address] [place] [address] Sex: Female Rx Written Rx Dispensed Drug Quantity Days Supply Prescriber Name 02/26/2017 02/26/2017 hydrocodone-acetaminophen 5-325 tablet 12 3 Flavio Smith"
[2017-08-16] MEDS ORDERED: Torsemide TAB* 20 MG PO SCH (15:00)
[2017-08-16 16:20] VITALS: BP 121/75
--- NOTE | 2017-08-17 13:23 | DS ---
CC: Dr. Hassan * DISCHARGE SUMMARY: DATE OF ADMISSION: DATE OF DISCHARGE: 08/16/17 HOSPITAL COURSE: This 51-year-old woman presented with right lower extremity swelling and warmth. The patient is felt to have sepsis secondary to cellulitis, her lactic acid was 2.1. She was given intravenous fluids and antibiotics. She had gradual improvement, which was quite slow. She will require wound dressing changes daily. She had a lot of from her wounds. Near the end of her hospital stay, I decided to try her on torsemide 40 mg. I am not sure how much of an increase in urine output there was. As an outpatient , I am going to have her take it on every other day basis and have her check her BMP next week. The patient had a CT scan of the right lower leg which showed fluid density blisters overlying the leg, these clinically were serous. She had a venous Doppler study also of the right lower leg. There was no evidence of deep venous thrombosis. She was seen in consultation by Dr. Abernathy. He felt that she had cellulitis with bulla formation and sloughing of skin, almost certainly due to group A streptococci. She was given intravenous antibiotics, which will be continued for another 48 hours. Elevation of her leg will also be very helpful. Pain control was achieved with a combination of short- and long-acting oxycodone. FINAL DIAGNOSES: 1. Cellulitis of right leg. 2. Hypothyroidism. 3. Hypertension. 4. Morbid obesity. DISCHARGE MEDICATIONS: 1. Acetaminophen 650 mg every 6 hours p.r.n. 2. Amoxicillin and clavulanate 875 mg b.i.d. for 10 days. 3. Oxycodone SR 10 mg b.i.d. 4. Oxycodone 5 mg 1 every 4 hours p.r.n. 5. Polyethylene glycol 17 g daily. 6. Torsemide 40 mg every 48 hours. 7. Olmesartan 20 mg daily. 8. Levothyroxine 75 mcg daily. DISCHARGE INSTRUCTIONS: The patient will have BMP on 08/23/17. [id number]/[facility] #: [id number] MTDD
== END 2017-08-16 17:20 | disposition home or self-care (01) | DRG 872 ==
LOC: ED 14:42 → MED 17:52
PROVIDERS: ADMIT Internal Medicine; ATTEND Internal Medicine
DX: A41.9 Sepsis, unspecified organism (principal); E66.01 Morbid (severe) obesity due to excess calories; L03.115 Cellulitis of right lower limb; Z68.44 Body mass index [BMI] 60.0-69.9, adult; B95.0 Streptococcus, group A, as the cause of diseases classified elsewhere; E03.9 Hypothyroidism, unspecified; I10 Essential (primary) hypertension; Z79.899 Other long term (current) drug therapy; Z91.030 Bee allergy status; Z83.3 Family history of diabetes mellitus; Z82.49 Family history of ischemic heart disease and other diseases of the circulatory system
CPT/HCPCS: 36415; 71010; 80048; 80053; 80202; 81003; 81015; 82550; 83605; 83880; 84443; 84484; 85025; 85027; 85610; 85730; 86140; 87040; 87070; 87205; 87641; 93005; 94640; 94760; A9270-GY; J0696; J1644; J2270; J2543; J3370

== ENCOUNTER 2018-05-19 08:20 | Emergency (ER) | payer MEDICARE, MEDICAID ==
--- NOTE | 2018-05-19 08:42 | ED ---
Throat Pain/Nasal Congestion - HPI Summary HPI Summary: Patient is a 52-year-old female who presents emergency department for redness and irritation to her right eye 2 days. Symptoms are mild tearing. Patient denies pain or visual changes. She does not work contact lenses. Denies upper respiratory symptoms sore throat, coughs, fever. Patient states she goes to [place] frequently and rides the local so has potential for exposure. Pt. denies concern for potential foreign body. - History of Current Complaint Chief Complaint: EDEyeProblem Time Seen by Provider: 05/19/18 08:34 Hx Obtained From: Patient - Allergies/Home Medications Allergies/Adverse Reactions: Allergies Allergy/AdvReac Type Severity Reaction Status Date / Time bee venom protein (honey bee) Allergy Hives/Diff. Verified 05/19/18 08:27 Breathing/I tching PMH/Surg Hx/FS Hx/Imm Hx Previously Healthy: Yes Endocrine/Hematology History: Reports: Hx Thyroid Disease Denies: Hx Anticoagulant Therapy, Hx Diabetes, Hx Anemia Cardiovascular History: Denies: Hx Hypertension, Hx Pacemaker/ICD Respiratory History: Denies: Hx Asthma, Hx Chronic Obstructive Pulmonary Disease (COPD) GI History: Denies: Hx Jaundice History: Denies: Hx Renal Disease Sensory History: Denies: Hx Contacts or Glasses, Hx Hearing Aid Opthamlomology History: Denies: Hx Contacts or Glasses Neurological History: Denies: Hx Dementia, Hx Seizures Psychiatric History: Denies: Hx Substance Abuse - Immunization History Date of Tetanus Vaccine: Unk Date of Influenza Vaccine: None Infectious Disease History: No Infectious Disease History: Denies: Hx Hepatitis, History Other Infectious Disease, Traveled Outside the [place] in Last 30 Days - Family History Known Family History: Positive: Diabetes, Other - Ovarian CA - Social History Occupation: Employed Full-time Lives: With Family Alcohol Use: None Substance Use Type: Reports: None Smoking Status (MU): Never Smoked Tobacco Review of Systems Constitutional: Negative Negative: Fever, Chills Positive: Drainage, Erythema ENT: Negative Negative: Sore Throat, Ear Ache, Nasal Discharge Cardiovascular: Negative Respiratory: Negative Neurological: Negative All Other Systems Reviewed And Are Negative: Yes Physical Exam Triage Information Reviewed: Yes Vital Signs On Initial Exam: Initial Vitals Temp Pulse Resp BP Pulse Ox 96.8 F 79 20 159/70 94 05/19/18 08:21 05/19/18 08:21 05/19/18 08:21 05/19/18 08:21 05/19/18 08:21 Vital Signs Reviewed: Yes Appearance: Positive: Well-Appearing - Pt. sitting on bed in NAD. Morbidly obese. Skin: Positive: Warm, Dry Head/Face: Positive: Normal Head/Face Inspection Eyes: Positive: Other: - Left eye is unremarkable. Very minimal conjunctival injection noted to the lateral aspect of the right eye. No surrounding periorbital erythema or edema. Extraocular muscles are intact without pain. Anterior chamber is clear. ENT: Positive: Pharynx normal, TMs normal Neurological: Positive: Normal, CN Intact II-III Psychiatric: Positive: Affect/Mood Appropriate Diagnostics - Vital Signs Vital Signs Temp Pulse Resp BP Pulse Ox 05/19/18 08:21 96.8 F 79 20 159/70 94 - Laboratory Lab Statement: Any lab studies that have been ordered have been reviewed, and results considered in the medical decision making process. EENT Course/Dx - Course Course Of Treatment: Pt. presenting with mild injection and irritation to her right eye. We'll treat for suspected conjunctivitis. Advised to apply warm compresses. Visual acuity was normal. To call family doctor for close follow- up if symptoms persist. Return to the ER if symptoms change or worsen. Patient understands and agrees with plan. - Differential Diagnoses Differential Diagnoses: Conjunctivitis, Foreign Body - Diagnoses Provider Diagnoses: Conjunctivitis Discharge - Sign-Out/Discharge Documenting (check all that apply): Patient Departure - Discharge Plan Condition: Good Disposition: HOME Prescriptions: Erythromycin OPHTH.OINT* [Ilotycin OPHTH.OINT*] 1 applic RIGHT EYE TID #1 ophth.oint Patient Education Materials: Conjunctivitis (ED) Referrals: Kitty Hassan MD [Primary Care Provider] - Additional Instructions: Follow up with PCP if symptoms persist Use antibiotic ointment as directed Apply warm compress to eye Return to ER if symptoms change or worsen - Billing Disposition and Condition Condition: GOOD Disposition: Home
[2018-05-19 09:14] VITALS: BP 0/0
== END 2018-05-19 09:03 | disposition home or self-care (01) ==
LOC: ED 08:20
DX: H10.9 Unspecified conjunctivitis (principal)
CPT/HCPCS: 99283

== ENCOUNTER 2019-05-07 05:10 | Emergency (ER) | payer MEDICARE, MEDICAID ==
--- NOTE | 2019-05-07 06:03 | ED ---
Lower Extremity - HPI Summary HPI Summary: Pt. is a 53 y.o female who presents to the ER for left lower leg redness and swelling x 2-3 days. Pt. denies any injuries or falls. Denies CP, SOB, fever. Past hx of HTN and obesity. Sxs are mild in severity. No current modifying factors. - History of Current Complaint Chief Complaint: EDExtremityLower Stated Complaint: L LEG PAIN PER PT Time Seen by Provider: 05/07/19 05:41 Hx Obtained From: Patient Pain Intensity: 4 - Allergies/Home Medications Allergies/Adverse Reactions: Allergies Allergy/AdvReac Type Severity Reaction Status Date / Time bee venom protein (honey bee) Allergy Hives/Diff. Verified 05/19/18 08:27 Breathing/I tching PMH/Surg Hx/FS Hx/Imm Hx Previously Healthy: Yes Endocrine/Hematology History: Reports: Hx Thyroid Disease Denies: Hx Anticoagulant Therapy, Hx Diabetes, Hx Anemia Cardiovascular History: Denies: Hx Hypertension, Hx Pacemaker/ICD Respiratory History: Denies: Hx Asthma, Hx Chronic Obstructive Pulmonary Disease (COPD) GI History: Denies: Hx Jaundice History: Denies: Hx Renal Disease Sensory History: Denies: Hx Contacts or Glasses, Hx Hearing Aid Opthamlomology History: Denies: Hx Contacts or Glasses Neurological History: Denies: Hx Dementia, Hx Seizures Psychiatric History: Denies: Hx Substance Abuse - Immunization History Date of Tetanus Vaccine: Unk Date of Influenza Vaccine: None Infectious Disease History: No Infectious Disease History: Denies: Hx Hepatitis, History Other Infectious Disease, Traveled Outside the [place] in Last 30 Days - Family History Known Family History: Positive: Diabetes, Other - Ovarian CA - Social History Occupation: Employed Full-time Lives: With Family Alcohol Use: None Substance Use Type: Reports: None Smoking Status (MU): Never Smoked Tobacco Review of Systems Constitutional: Negative Negative: Fever, Chills Cardiovascular: Negative Negative: Chest Pain Respiratory: Negative Negative: Shortness Of Breath Positive: Other - left lower leg swelling Positive: Other - left leg redness Neurological: Negative All Other Systems Reviewed And Are Negative: Yes Physical Exam Triage Information Reviewed: Yes Vital Signs On Initial Exam: Initial Vitals Temp Pulse Resp BP Pulse Ox 98.9 F 99 18 162/95 98 05/07/19 05:11 05/07/19 05:11 05/07/19 05:11 05/07/19 05:11 05/07/19 05:11 Vital Signs Reviewed: Yes Appearance: Positive: Well-Appearing - Pt. sitting on side of bed in NAD. Morbidly obese. Skin: Positive: Warm, Dry Head/Face: Positive: Normal Head/Face Inspection Eyes: Positive: Normal, EOMI Neck: Positive: Supple Respiratory/Lung Sounds: Positive: Clear to Auscultation, Breath Sounds Present Cardiovascular: Positive: Normal, RRR Musculoskeletal: Positive: Other - Moderate edema to left lower leg with overlying erythema and warmth. Good pedal pulse. No wounds noted. Neurological: Positive: Normal, CN Intact II-III Psychiatric: Positive: Affect/Mood Appropriate Diagnostics - Vital Signs Vital Signs Temp Pulse Resp BP Pulse Ox 05/07/19 05:11 98.9 F 99 18 162/95 98 - Laboratory Result Diagrams: 05/07/19 06:17 05/07/19 06:17 Lab Statement: Any lab studies that have been ordered have been reviewed, and results considered in the medical decision making process. Lower Extremity Course/Dx - Course Course Of Treatment: Pt. presenting with LLL erythema and edema. Afebrile. Suspect cellulitis but will obtain venous u/s to r/o DVT. Labs show mild elevation in WBC and high CRP. Venous duplex is negative for DVT per radiology. Will start pt. on keflex QID. Advised elevation and warm compresses. To f.u with with PCP in 2-3 days. To return to ER for increased redness, swelling, fever, or if concerned. Pt. undertsands and agrees with plan. - Diagnoses Differential Diagnosis/HQI/PQRI: Positive: Cellulitis, DVT Provider Diagnoses: Cellulitis Discharge ED - Sign-Out/Discharge Documenting (check all that apply): Patient Departure Patient Received Moderate/Deep Sedation with Procedure: No - Discharge Plan Condition: Good Disposition: HOME Prescriptions: Cephalexin CAP* [Keflex CAP*] 500 mg PO QID #40 cap Cephalexin CAP* [Keflex CAP*] 500 mg PO QID #40 cap Patient Education Materials: Cellulitis (ED) Referrals: Kitty Hassan MD [Primary Care Provider] - Additional Instructions: Follow up with PCP in 2-3 days for recheck Take antibiotic as directed Elevate leg and apply warm compresses Return to ER for increased redness, swelling, pain, fever, or if concerned - Billing Disposition and Condition Condition: GOOD Disposition: Home
[2019-05-07 06:29] LABS: ABS Eosinophils 0.1 10^3/ul (0-0.6); ABS Lymphocytes 0.8 10^3/ul (1.0-4.8); ABS Monocytes 0.4 10^3/ul (0-0.8); ABS Neutrophils 10.1 10^3/ul (1.5-7.7); Hematocrit 39 % (35-47); Hemoglobin 12.7 g/dL (12.0-16.0); Lymphocyte % 6.6 %; Mean Corpuscular HGB Conc 33 g/dL (31-36); Mean Corpuscular Hemoglobin 27 pg (27-31); Mean Corpuscular Volume 83 fL (80-97); Mean Platelet Volume 8.2 fL (7.4-10.4); Platelet Count 183 10^3/uL (150-450); Red Blood Count 4.68 10^6 /uL (3.70-4.87); Red Cell Distribution Width 16 % (10-15); White Blood Count 11.4 10^3/uL (3.5-10.8)
[2019-05-07 06:39] LABS: Activated Partial Thrombo Time 35.2 seconds (26.0-38.0); INR 1.26 (0.82-1.09)
[2019-05-07 06:48] LABS: Albumin 3.7 g/dL (3.2-5.2); Albumin/Globulin Ratio 1.2 (1-3); BUN/Creatinine Ratio 15.8 (8-20); C Reactive Protein 243.88 mg/L (<8.01); Calcium 8.8 mg/dL (8.6-10.3); EGFR African American 96.3 (>60); EGFR Non-African American 79.6 (>60); Globulin 3.2 g/dL (2-4); Potassium 3.6 mmol/L (3.5-5.0); Total Protein 6.9 g/dL (6.4-8.9)
[2019-05-07 08:37] VITALS: BP 158/94
== END 2019-05-07 08:35 | disposition home or self-care (01) ==
LOC: ED 05:10
DX: L03.116 Cellulitis of left lower limb (principal); I10 Essential (primary) hypertension; E07.9 Disorder of thyroid, unspecified; Z79.890 Hormone replacement therapy; Z79.899 Other long term (current) drug therapy
CPT/HCPCS: 36415; 80053; 85025; 85610; 85730; 86140; 99282

== ENCOUNTER 2019-05-13 04:56 | Emergency (ER) | payer MEDICARE, MEDICAID ==
--- NOTE | 2019-05-13 05:19 | ED ---
Skin Complaint - HPI Summary HPI Summary: This pt is a 53 Y/O F presenting to [facility] with a CC of a blister that has been infected. She states that she has been in the hospital recently and was diagnosed with cellulitis on 05/07/19. She was given ABX by both the emergency department doctor and her PCP and is currently taking Cephalexin and Doxycycline. She states that she has increased pain when she moves her L foot. She rates the pain from the blister as a 3/10 in severity. She has no alleviating factors. She denies any fevers, chills, N/V, abdominal pain, SOB, and headaches. She also states that her L leg is not as hot or red as when she was first diagnosed. She has a PMHx of a similar symptomology on her R leg and thyroid disease. - History of Current Complaint Chief Complaint: EDRashSkinAbscess Stated Complaint: CELLULITIS PER PT Hx Obtained From: Patient Onset/Duration: Started Days Ago - 6, Still Present Skin Exposure Onset/Duration: Days Ago - 6 Timing: Constant Onset Severity: Mild Current Severity: Mild Pain Intensity: 3 Pain Scale Used: 0-10 Numeric Skin Location: Leg - L lower leg Character: Redness Aggravating Symptom(s): Other: - movement of her L foot Alleviating Symptom(s): Nothing Associated Signs & Symptoms: Negative - fevers, chills, N/V, abdominal pain, SOB , and headaches. - Additional Pertinent History Primary Care Physician: [id number] - Allergy/Home Medications Allergies/Adverse Reactions: Allergies Allergy/AdvReac Type Severity Reaction Status Date / Time bee venom protein (honey bee) Allergy Hives/Diff. Verified 05/13/19 05:02 Breathing/I tching PMH/Surg Hx/FS Hx/Imm Hx Previously Healthy: Yes Endocrine/Hematology History: Reports: Hx Thyroid Disease Denies: Hx Anticoagulant Therapy, Hx Diabetes, Hx Anemia Cardiovascular History: Denies: Hx Hypertension, Hx Pacemaker/ICD Respiratory History: Denies: Hx Asthma, Hx Chronic Obstructive Pulmonary Disease (COPD) GI History: Denies: Hx Jaundice History: Denies: Hx Renal Disease Sensory History: Denies: Hx Contacts or Glasses, Hx Hearing Aid Opthamlomology History: Denies: Hx Contacts or Glasses Neurological History: Denies: Hx Dementia, Hx Seizures Psychiatric History: Denies: Hx Substance Abuse - Surgical History Surgical History: None - Immunization History Date of Tetanus Vaccine: Unk Date of Influenza Vaccine: None Immunizations Up to Date: Yes Infectious Disease History: No Infectious Disease History: Denies: Hx Hepatitis, History Other Infectious Disease, Traveled Outside the [place] in Last 30 Days - Family History Known Family History: Positive: Diabetes, Other - Ovarian CA - Social History Alcohol Use: None Substance Use Type: Reports: None Smoking Status (MU): Never Smoked Tobacco Review of Systems Negative: Fever, Chills Negative: Shortness Of Breath Negative: Abdominal Pain, Vomiting, Nausea Positive: Rash - L leg cellulits per pt Negative: Headache All Other Systems Reviewed And Are Negative: Yes Physical Exam - Summary Physical Exam Summary: Appearance: morbidly obese woman in no diostress lying in bed comfortably Skin: Warm, dry, healing cellulitis without warmth, tenderness, and drainage Eyes: sclera anicteric, no conjunctival pallor ENT: mucous membranes moist, pharynx appears normal Neck: Supple, nontender Respiratory: Clear to auscultation, no signs of respiratory distress Cardiovascular: Normal S1, S2. No murmurs. Normal distal pulses in tibial and radial bilaterally. Abdomen: Soft, nontender, normal active bowel sounds present Musculoskeletal: Normal, Strength/ROM Intact Neurological: A&Ox3, awake and alert, mentation is normal, speech is fluent and appropriate Psychiatric: affect is normal, does not appear anxious or depressed Triage Information Reviewed: Yes Vital Signs On Initial Exam: Initial Vitals Temp Pulse Resp BP Pulse Ox 97.0 F 89 28 118/90 97 05/13/19 04:58 05/13/19 04:58 05/13/19 04:58 05/13/19 04:58 05/13/19 04:58 Vital Signs Reviewed: Yes Procedures - Sedation Patient Received Moderate/Deep Sedation with Procedure: No Diagnostics - Vital Signs Vital Signs Temp Pulse Resp BP Pulse Ox 05/13/19 04:58 97.0 F 89 28 118/90 97 - Laboratory Result Diagrams: 05/13/19 05:44 05/13/19 05:44 Lab Statement: Any lab studies that have been ordered have been reviewed, and results considered in the medical decision making process. Course/Dx - Course Course Of Treatment: This pt is a 53 Y/O F presenting to [facility] with a CC of a blister that has been infected. She states that she has been in the hospital recently and was diagnosed with cellulitis. She was given ABX by both the emergency department doctor and her PCP and is currently taking Cephalexin and Doxycycline. Her PE found that she had healing cellulitis without warmth, tenderness, and drainage. She had abnormalities in her C-reactive proteins. She will be discharged home with a Dx of cellulitis. - Diagnoses Provider Diagnoses: Cellulitis Discharge ED - Sign-Out/Discharge Documenting (check all that apply): Patient Departure - discharge - Discharge Plan Condition: Good Disposition: HOME Patient Education Materials: Cellulitis (ED) Referrals: Kitty Hassan MD [Primary Care Provider] - Additional Instructions: It looks like your skin is healing but it will take some time to heal completely , likely several weeks to a couple of months. Contact your PCP on Wednesday to arrange an appt to have this looked after. By then we should have results from the culture of the fluid I took this morning to help guide further treatment. - Billing Disposition and Condition Condition: GOOD Disposition: Home - Attestation Statements Document Initiated by Lexi: Yes Documenting Scribe: Troy Salcedo Provider For Whom Lexi is Documenting (Include Credential): Griffin Barajas MD Scribe Attestation: I, Troy Salcedo, scribed for Griffin Barajas MD on 05/14/19 at 0116. Scribe Documentation Reviewed: Yes Provider Attestation: The documentation as recorded by the Troy sue accurately reflects the service I personally performed and the decisions made by me, Griffin Barajas MD Status of Scribe Document: Viewed
[2019-05-13 05:55] LABS: Hematocrit 39 % (35-47); Hemoglobin 12.8 g/dL (12.0-16.0); Mean Corpuscular HGB Conc 33 g/dL (31-36); Mean Corpuscular Hemoglobin 27 pg (27-31); Mean Corpuscular Volume 82 fL (80-97); Mean Platelet Volume 8.1 fL (7.4-10.4); Platelet Count 353 10^3/uL (150-450); Red Blood Count 4.68 10^6 /uL (3.70-4.87); Red Cell Distribution Width 16 % (10-15); White Blood Count 8.1 10^3/uL (3.5-10.8)
[2019-05-13 06:11] LABS: Albumin 3.6 g/dL (3.2-5.2); BUN/Creatinine Ratio 18.9 (8-20); C Reactive Protein 80.53 mg/L (<8.01); Calcium 8.7 mg/dL (8.6-10.3); EGFR African American 99.3 (>60); EGFR Non-African American 82.1 (>60); Globulin 3.5 g/dL (2-4); Potassium 3.7 mmol/L (3.5-5.0); Total Bilirubin 0.5 mg/dL (0.2-1.0); Total Protein 7.1 g/dL (6.4-8.9)
[2019-05-13 06:17] LABS: ABS Basophils 0.1 10^3/ul (0-0.2); ABS Eosinophils 0.5 10^3/ul (0-0.6); ABS Lymphocytes 1.8 10^3/ul (1.0-4.8); ABS Monocytes 0.4 10^3/ul (0-0.8); ABS Neutrophils 5.4 10^3/ul (1.5-7.7); Eosinophil % 5.9 %; Lymphocyte % 22.4 %; Nucleated Red Blood Cells % 0.1
[2019-05-13 06:36] VITALS: BP 158/106
== END 2019-05-13 06:23 | disposition home or self-care (01) ==
LOC: ED 04:56
DX: L03.116 Cellulitis of left lower limb (principal); E07.9 Disorder of thyroid, unspecified; Z79.890 Hormone replacement therapy; Z79.899 Other long term (current) drug therapy
CPT/HCPCS: 36415; 80053; 85025; 86140; 87070; 87205; 99282

== ENCOUNTER 2019-05-15 05:11 | Emergency (ER) | payer MEDICARE, MEDICAID ==
--- NOTE | 2019-05-15 05:54 | ED ---
Skin Complaint - HPI Summary HPI Summary: Pt. is a 53 y.o female who presents to the ER for re-evaluation of cellulitis to left lower leg. Pt. seen in ED about a week ago for LLE redness and started on keflex for cellulitis. Pt. f.u with PCP and doxycycline was added. Pt. seen in ED again 05/13 after she developed a blister to LLE. Pt. states today skin over blister started peeling so she presents for re-evaluation. Pt. notes that redness has improved. Denies fever, chills, N/V. Sxs are mild in severity. No current modifying factors. - History of Current Complaint Chief Complaint: EDExtremityLower Time Seen by Provider: 05/15/19 05:39 Stated Complaint: CELLULITIS PER PT Hx Obtained From: Patient Pain Intensity: 0 - Additional Pertinent History Primary Care Physician: AIYANA - Allergy/Home Medications Allergies/Adverse Reactions: Allergies Allergy/AdvReac Type Severity Reaction Status Date / Time bee venom protein (honey bee) Allergy Hives/Diff. Verified 05/15/19 05:17 Breathing/I tching Home Medications: Home Medications Torsemide TAB* [Demadex 20 MG*] 40 mg PO DAILY PRN 05/15/19 [History Confirmed 05/15/19] Valsartan 160 mg PO DAILY 05/15/19 [History Confirmed 05/15/19] PMH/Surg Hx/FS Hx/Imm Hx Previously Healthy: Yes Endocrine/Hematology History: Reports: Hx Thyroid Disease Denies: Hx Anticoagulant Therapy, Hx Diabetes, Hx Anemia Cardiovascular History: Denies: Hx Hypertension, Hx Pacemaker/ICD Respiratory History: Denies: Hx Asthma, Hx Chronic Obstructive Pulmonary Disease (COPD) GI History: Denies: Hx Jaundice History: Denies: Hx Renal Disease Sensory History: Denies: Hx Contacts or Glasses, Hx Hearing Aid Opthamlomology History: Denies: Hx Contacts or Glasses Neurological History: Denies: Hx Dementia, Hx Seizures Psychiatric History: Denies: Hx Substance Abuse - Immunization History Date of Tetanus Vaccine: Unk Date of Influenza Vaccine: None Infectious Disease History: No Infectious Disease History: Denies: Hx Hepatitis, History Other Infectious Disease, Traveled Outside the [place] in Last 30 Days - Family History Known Family History: Positive: Diabetes, Other - Ovarian CA, Non-Contributory - Social History Occupation: Employed Full-time Lives: With Family Alcohol Use: None Substance Use Type: Reports: None Smoking Status (MU): Never Smoked Tobacco Review of Systems Constitutional: Negative Negative: Fever, Chills Gastrointestinal: Negative Negative: Vomiting, Nausea Positive: Other - redness and wound to left lower leg. All Other Systems Reviewed And Are Negative: Yes Physical Exam Triage Information Reviewed: Yes Vital Signs On Initial Exam: Initial Vitals Temp Pulse Resp BP Pulse Ox 97.5 F 80 18 162/108 97 05/15/19 05:13 05/15/19 05:13 05/15/19 05:13 05/15/19 05:13 05/15/19 05:13 Vital Signs Reviewed: Yes Appearance: Positive: Well-Appearing - Pt. sitting up in bed in NAD. Talkative. Obese. Skin: Positive: Warm, Dry Head/Face: Positive: Normal Head/Face Inspection Eyes: Positive: Normal, EOMI Neck: Positive: Supple Musculoskeletal: Positive: Other - Erythema noted to distal left lower leg. 3cm superficial wound to posterior leg. Clear/yellow drainage on wound dressing. Neurological: Positive: Normal, CN Intact II-III Psychiatric: Positive: Affect/Mood Appropriate Procedures - Sedation Patient Received Moderate/Deep Sedation with Procedure: No Diagnostics - Vital Signs Vital Signs Temp Pulse Resp BP Pulse Ox 05/15/19 05:13 97.5 F 80 18 162/108 97 - Laboratory Lab Statement: Any lab studies that have been ordered have been reviewed, and results considered in the medical decision making process. Course/Dx - Course Course Of Treatment: Pt. presenting for re-evaluation of cellulitis. She is afebrile and well appearing. Pt. had labs in ED two days ago which showed improvement of WBC and CRP. Pt. was concerned today because skin over blister started to peel. Pt. notes redness is improving. Wound dressing changed. Pt. re- assured. To continue antibx as directed. Pt. has recheck with PCP on Wednesday. Will return to ER for increased pain, redness, fever or if concerned. Pt. understands and agrees with plan. - Diagnoses Provider Diagnoses: Cellulitis Discharge ED - Sign-Out/Discharge Documenting (check all that apply): Patient Departure - Discharge Plan Condition: Good Disposition: HOME Patient Education Materials: Cellulitis (ED) Referrals: Kitty Hassan MD [Primary Care Provider] - Additional Instructions: Follow up with your PCP on Wednesday as scheduled Continue antibiotics as directed Keep wound clean and dry Elevate leg and apply warm compresses Return to ER for increased redness, pain, fever, or if concerned - Billing Disposition and Condition Condition: GOOD Disposition: Home
[2019-05-15 06:17] VITALS: BP 148/103
== END 2019-05-15 06:17 | disposition home or self-care (01) ==
LOC: ED 05:11
DX: L03.116 Cellulitis of left lower limb (principal); E07.9 Disorder of thyroid, unspecified; Z79.890 Hormone replacement therapy; Z79.899 Other long term (current) drug therapy
CPT/HCPCS: 99282

== ENCOUNTER 2019-10-06 05:25 | Emergency (ER) | payer MEDICARE, MEDICAID ==
--- NOTE | 2019-10-06 07:20 | ED ---
GI/ HPI - HPI Summary HPI Summary: 53 year old female presents with abdominal pain today. She states it is located in her left lower quadrant and went to her flank. States the pain is minimal now. pain improved after she passed some gas. She denies any urinary symptoms. No hematuria. Never had this pain before. She denies any abdominal surgeries. No nausea and vomiting. She states she is hungry now. she denies any chest pain or SOB. no vaginal discharge. She has history of thyroid issues. - History of Current Complaint Chief Complaint: EDAbdPain Time Seen by Provider: 10/06/19 07:13 Stated Complaint: ABD PAIN PER PT Pain Intensity: 5 - Additional Pertinent History Primary Care Physician: [id number] - Allergy/Home Medications Allergies/Adverse Reactions: Allergies Allergy/AdvReac Type Severity Reaction Status Date / Time bee venom protein (honey bee) Allergy Hives/Diff. Verified 08/18/19 06:02 Breathing/I tching Home Medications: Home Medications Levothyroxine TAB* [Synthroid 75 MCG TAB*] 88 mcg PO QAM 08/06/17 [History Confirmed 10/06/19] Torsemide TAB* [Demadex 20 MG*] 10 mg PO SEE INSTRUCTIONS 05/15/19 [History Confirmed 10/06/19] Valsartan 320 mg PO DAILY 05/15/19 [History Confirmed 10/06/19] Albuterol HFA INHALER* [Ventolin HFA Inhaler*] 2 puff INH Q6H PRN 10/06/19 [ History Confirmed 10/06/19] Budesonide/Formote 160/4.5(NF) [Symbicort 160/4.5 (NF)] 2 puff INH BID 10/06/19 [History Confirmed 10/06/19] Polyethylene Glycol 3350* [Miralax (17 GM DOSE MARINO)] 17 gm PO DAILY #7 packet [Rx] diPHENhydraMINE PO* [Benadryl PO 25 MG TAB*] 25 mg PO Q4H PRN 10/06/19 [History Confirmed 10/06/19] PMH/Surg Hx/FS Hx/Imm Hx Endocrine/Hematology History: Reports: Hx Thyroid Disease Denies: Hx Anticoagulant Therapy, Hx Diabetes, Hx Anemia Cardiovascular History: Denies: Hx Hypertension, Hx Pacemaker/ICD Respiratory History: Denies: Hx Asthma, Hx Chronic Obstructive Pulmonary Disease (COPD) GI History: Denies: Hx Jaundice History: Denies: Hx Renal Disease Sensory History: Denies: Hx Contacts or Glasses, Hx Hearing Aid Opthamlomology History: Denies: Hx Contacts or Glasses Neurological History: Denies: Hx Dementia, Hx Seizures Psychiatric History: Denies: Hx Substance Abuse - Immunization History Date of Tetanus Vaccine: Unk Date of Influenza Vaccine: None Infectious Disease History: No Infectious Disease History: Denies: Hx Hepatitis, History Other Infectious Disease, Traveled Outside the [place] in Last 30 Days - Family History Known Family History: Positive: Diabetes, Other - Ovarian CA, Non-Contributory - Social History Alcohol Use: None Substance Use Type: Reports: None Smoking Status (MU): Former Smoker Review of Systems Negative: Fever Negative: Chest Pain Negative: Shortness Of Breath Positive: Abdominal Pain Positive: flank pain. Negative: dysuria All Other Systems Reviewed And Are Negative: Yes Physical Exam Triage Information Reviewed: Yes Vital Signs On Initial Exam: Initial Vitals Temp Pulse Resp BP Pulse Ox 97.1 F 72 20 183/101 99 10/06/19 05:31 10/06/19 05:31 10/06/19 05:31 10/06/19 05:31 10/06/19 05:31 Vital Signs Reviewed: Yes Appearance: Positive: Well-Appearing Skin: Positive: Warm, Dry Head/Face: Positive: Normal Head/Face Inspection Eyes: Positive: Normal, Conjunctiva Clear ENT: Positive: Pharynx normal Respiratory/Lung Sounds: Positive: Clear to Auscultation, Breath Sounds Present Cardiovascular: Positive: Normal, RRR Abdomen Description: Positive: Nontender, Soft. Negative: CVA Tenderness (R), CVA Tenderness (L) Bowel Sounds: Positive: Present Musculoskeletal: Positive: Normal Neurological: Positive: Normal Psychiatric: Positive: Normal Procedures - Sedation Patient Received Moderate/Deep Sedation with Procedure: No Diagnostics - Vital Signs Vital Signs Temp Pulse Resp BP Pulse Ox 10/06/19 05:31 97.1 F 72 20 183/101 99 - Laboratory Result Diagrams: 10/06/19 07:25 10/06/19 07:25 Lab Statement: Any lab studies that have been ordered have been reviewed, and results considered in the medical decision making process. - Radiology abd Radiology Interpretation Completed By: Radiologist Summary of Radiographic Findings: IMPRESSION: #. Large burden of stool throughout the colon. No evidence for bowel obstruction - EKG No standard instances Cardiac Rate: NL EKG Rhythm: Sinus Rhythm EKG Comparison: No Significant Change Summary of EKG Findings: sinus rhythm Re-Evaluation - Re-Evaluation First Eval Re-Evaluation Time: 08:54 Change: Improved Comment: no pain, nontender abd GIGU Course/Dx - Course Course Of Treatment: 53 year old female presents with abdominal pain today. She states it is located in her left lower quadrant and went to her flank. States the pain is minimal now. pain improved after she passed some gas. She denies any urinary symptoms. No hematuria. Never had this pain before. She denies any abdominal surgeries. No nausea and vomiting. She states she is hungry now. she denies any chest pain or SOB. no vaginal discharge. She has history of thyroid issues. On exam nontender abdomen. No CVA tenderness. wbc 10. crp elevated. xray shows large amount of stool. repeat exam nontender abd. discussed will add on miralax as may be constipation that is causing pain. told follow up with primary. patient understand and agrees with plan. - Diagnoses Differential Diagnoses - Female: Gastroenteritis (Viral), Gastroenteritis ( Bacterial), Urinary Tract Infection Provider Diagnoses: Abdominal pain Discharge ED - Sign-Out/Discharge Documenting (check all that apply): Patient Departure - Discharge Plan Condition: Good Disposition: HOME Prescriptions: Polyethylene Glycol 3350* [Miralax (17 GM DOSE MARINO)] 17 gm PO DAILY #7 packet Patient Education Materials: Abdominal Pain (ED) Referrals: Kitty Hassan MD [Primary Care Provider] - Additional Instructions: take miralax packet in 8 ounce of liquid daily increase fiber intake drink plenty of fluids Take Tylenol every 6 hours as needed for pain follow up with primary within 5 days Return to ED if develop any fever, or any new or worsening symptoms - Billing Disposition and Condition Condition: GOOD Disposition: Home
[2019-10-06 07:31] LABS: ABS Eosinophils 0.3 10^3/ul (0-0.6); ABS Lymphocytes 1.5 10^3/ul (1.0-4.8); ABS Monocytes 0.5 10^3/ul (0-0.8); ABS Neutrophils 8.2 10^3/ul (1.5-7.7); Eosinophil % 2.5 %; Hematocrit 41 % (35-47); Hemoglobin 13.8 g/dL (12.0-16.0); Lymphocyte % 14.4 %; Mean Corpuscular HGB Conc 34 g/dL (31-36); Mean Corpuscular Hemoglobin 27 pg (27-31); Mean Corpuscular Volume 80 fL (80-97); Mean Platelet Volume 8.3 fL (7.4-10.4); Platelet Count 254 10^3/uL (150-450); Red Cell Distribution Width 16 % (10-15); White Blood Count 10.6 10^3/uL (3.5-10.8)
[2019-10-06 07:50] LABS: Albumin 4.4 g/dL (3.2-5.2); Albumin/Globulin Ratio 1.1 (1-3); BUN/Creatinine Ratio 20.8 (8-20); C Reactive Protein 33.46 mg/L (<8.01); Calcium 9.7 mg/dL (8.6-10.3); EGFR African American 94.9 (>60); EGFR Non-African American 78.4 (>60); Globulin 3.9 g/dL (2-4); Potassium 4.3 mmol/L (3.5-5.0); Total Bilirubin 0.7 mg/dL (0.2-1.0); Total Protein 8.3 g/dL (6.4-8.9)
[2019-10-06 09:09] LABS: Urine Appearance Turbid; Urine Bilirubin Negative (Negative); Urine Blood 2+ (Negative); Urine Color Yellow; Urine Glucose Negative (Negative); Urine Ketones Negative (Negative); Urine Nitrite Negative (Negative); Urine Protein Negative (Negative); Urine Specific Gravity 1.016 (1.010-1.030); Urine Urobilinogen Negative (Negative)
[2019-10-06 09:12] VITALS: BP 146/89
[2019-10-06 09:15] LABS: Urine Bacteria 2+ (Absent); Urine Red Blood Cell 3+(>10/hpf) (Absent); Urine Squamous Epithelial Cell Present (Absent); Urine White Blood Cell 2+(11-20/hpf) (Absent)
--- NOTE | 2019-10-08 07:52 | ED ---
Imaging and Labs Follow Up Follow Up Type: Labs/Cultures Labs/Culture Result: Urine culture preliminary grew e coli 100,000 patient was symptomatic of flank pain - was not started on abx Patient Communication/Plan: will await treatment until sensitivities Patient Communication/Plan: patient was not started on abx and will await sensitivities prior to placing on abx Provider Diagnoses: Abdominal pain
--- NOTE | 2019-10-09 12:26 | ED ---
Imaging and Labs Follow Up Follow Up Type: Labs/Cultures Labs/Culture Result: Urine culture growing >100k e. coli. Patient Communication/Plan: Called and spoke with pt. today at 1124 and discussed results. Rx for keflex sent to pharmacy. Provider Diagnoses: Abdominal pain
== END 2019-10-06 09:11 | disposition home or self-care (01) ==
LOC: ED 05:25
DX: R10.32 Left lower quadrant pain (principal); E03.9 Hypothyroidism, unspecified; Z87.891 Personal history of nicotine dependence; Z79.890 Hormone replacement therapy; Z79.899 Other long term (current) drug therapy
CPT/HCPCS: 36415; 74019; 80053; 81003; 81015; 83605; 83690; 85025; 86140; 87077; 87086; 87186; 93005; 99283

== ENCOUNTER 2019-10-20 05:22 | Emergency (ER) | payer MEDICARE, MEDICAID ==
--- NOTE | 2019-10-20 05:52 | ED ---
Abdominal Pain/Female - HPI Summary HPI Summary: Patient is a 53-year-old female who presents emergency department for presents emergency department for lower abdominal pain times several days. Pain is located left lower quadrant. Denies associated symptoms of fever or chills. Notes mild improving cough. Denies any recent travels. Denies urinary symptoms , vomiting, diarrhea. Patient notes constipation but is unable to tell me last bowel movement. Patient seen in ED a few weeks ago for similar symptoms and was diagnosed with a UTI. Patient states she was given medication for constipation but states was too expensive and she feels her pain today secondary to constipation. Symptoms are moderate in severity. No current modifying factors. - History of Current Complaint Chief Complaint: EDAbdPain Stated Complaint: ABD PAIN PER PT Time Seen by Provider: 10/20/19 05:40 Hx Obtained From: Patient Pain Intensity: 6 Allergies/Adverse Reactions: Allergies Allergy/AdvReac Type Severity Reaction Status Date / Time bee venom protein (honey bee) Allergy Hives/Diff. Verified 08/18/19 06:02 Breathing/I tching Home Medications: Home Medications Levothyroxine TAB* [Synthroid 75 MCG TAB*] 88 mcg PO QAM 08/06/17 [History Confirmed 10/20/19] Torsemide TAB* [Demadex 20 MG*] 10 mg PO DAILY 05/15/19 [History Confirmed 10/19] Valsartan 320 mg PO DAILY 05/15/19 [History Confirmed 10/20/19] Albuterol HFA INHALER* [Ventolin HFA Inhaler*] 2 puff INH Q6H PRN 10/06/19 [ History Confirmed 10/20/19] Budesonide/Formote 160/4.5(NF) [Symbicort 160/4.5 (NF)] 2 puff INH BID 10/06/19 [History Confirmed 10/20/19] diPHENhydraMINE PO* [Benadryl PO 25 MG TAB*] 25 mg PO Q4H PRN 10/06/19 [History Confirmed 10/20/19] PMH/Surg Hx/FS Hx/Imm Hx Previously Healthy: Yes Endocrine/Hematology History: Reports: Hx Thyroid Disease Denies: Hx Anticoagulant Therapy, Hx Diabetes, Hx Anemia Cardiovascular History: Denies: Hx Hypertension, Hx Pacemaker/ICD Respiratory History: Denies: Hx Asthma, Hx Chronic Obstructive Pulmonary Disease (COPD) GI History: Denies: Hx Jaundice History: Denies: Hx Renal Disease Sensory History: Denies: Hx Contacts or Glasses, Hx Hearing Aid Opthamlomology History: Denies: Hx Contacts or Glasses Neurological History: Denies: Hx Dementia, Hx Seizures Psychiatric History: Denies: Hx Substance Abuse - Immunization History Date of Tetanus Vaccine: Unk Date of Influenza Vaccine: None Infectious Disease History: No Infectious Disease History: Denies: Hx Hepatitis, History Other Infectious Disease, Traveled Outside the [place] in Last 30 Days - Family History Known Family History: Positive: Diabetes, Other - Ovarian CA, Non-Contributory - Social History Occupation: Employed Full-time Lives: With Family Alcohol Use: None Substance Use Type: Reports: None Smoking Status (MU): Former Smoker Review of Systems Constitutional: Negative Negative: Fever, Chills ENT: Negative Cardiovascular: Negative Negative: Chest Pain Positive: Cough. Negative: Shortness Of Breath Positive: Abdominal Pain. Negative: Vomiting, Diarrhea, Nausea Genitourinary: Negative Negative: dysuria Neurological/Mental Status: Negative All Other Systems Reviewed And Are Negative: Yes Physical Exam Triage Information Reviewed: Yes Vital Signs On Initial Exam: Initial Vitals Temp Pulse Resp BP Pulse Ox 96 F 82 22 149/92 96 10/20/19 05:24 10/20/19 05:24 10/20/19 05:24 10/20/19 05:24 10/20/19 05:24 Vital Signs Reviewed: Yes Appearance: Positive: Well-Appearing - Patient lying in bed in no acute distress. Poor hygiene. Skin: Positive: Warm, Dry Head/Face: Positive: Normal Head/Face Inspection Eyes: Positive: Normal, EOMI Neck: Positive: Supple Respiratory/Lung Sounds: Positive: Clear to Auscultation, Breath Sounds Present Cardiovascular: Positive: Normal, RRR Abdomen Description: Positive: Other: - Morbidly obese. Large umbilical hernia that is nonreducible. Mildly tender. Tenderness to left lower quadrant as well. No rebound tenderness or guarding. Neurological: Positive: Normal, CN Intact II-III Psychiatric: Positive: Affect/Mood Appropriate Procedures - Sedation Patient Received Moderate/Deep Sedation with Procedure: No Diagnostics - Vital Signs Vital Signs Temp Pulse Resp BP Pulse Ox 10/20/19 05:24 96 F 82 22 149/92 96 - Laboratory Result Diagrams: 10/20/19 05:59 10/20/19 05:59 Lab Statement: Any lab studies that have been ordered have been reviewed, and results considered in the medical decision making process. Abdominal Pain Fem Course/Dx - Course Course Of Treatment: Patient with increased lower abdominal pain. She does have a large nonreducible umbilical hernia that is mildly tender. Afebrile nontoxic appearing. Labs are unremarkable other than mildly elevated CRP. UA negative for infection. CT abd./pelvis per radiolgoy: 1. A 12 CM PERIUMBILICAL HERNIA CONTAINS STRANDED FAT AND NONDILATED TRANSVERSE COLON. THIS IS A POTENTIAL SOURCE OF FOCAL PAIN.. 2. LARGE LEIOMYOMATOUS UTERUS. 3. SEVERAL RETROPERITONEAL AND PERIPORTAL LYMPH NODES ARE SLIGHTLY ENLARGED. CONSIDER 3-6. MONTH FOLLOW-UP TO DOCUMENT STABILITY. 4. 3.6 CM ISODENSE RIGHT RENAL CYST. ATTENTION ON FOLLOW-UP ABOVE. Case discussed with on-call surgery, Dr. Perez, she feels patient can follow-up in office to discuss options. Reexamination patient resting comfortably without discomfort. Results discussed. Patient will call surgical clinic today to schedule a close follow- up appointment. Return to the ER for increased pain, fever vomiting or if concerned. Patient understands and agrees with plan. - Diagnoses Differential Diagnosis: Positive: Appendicitis, Bowel Obstruction, Constipation Provider Diagnoses: Abdominal pain, Umbilical hernia Discharge ED - Sign-Out/Discharge Documenting (check all that apply): Patient Departure - Discharge Plan Condition: Good Disposition: HOME Patient Education Materials: Umbilical Hernia (ED) Referrals: Kitty Hassan MD [Primary Care Provider] - Chandrika Perez MD [Medical Doctor] - Additional Instructions: Please schedule a follow up appointment with the surgery clinic to discuss hernia Return to ER for increased pain, fever, vomiting, or if concerned - Billing Disposition and Condition Condition: GOOD Disposition: Home - Attestation Statements Provider Attestation: I was available for consultation for this patient. I did not evaluate the patient or participate in any medical decision making or disposition decisions unless I am specifically named in the chart as having consulted on the patient. If I have consulted on the patient, please see my own ED note on the patient encounter. Humberto Angulo MD
[2019-10-20 06:09] LABS: ABS Basophils 0.1 10^3/ul (0-0.2); ABS Eosinophils 0.4 10^3/ul (0-0.6); ABS Lymphocytes 1.4 10^3/ul (1.0-4.8); ABS Monocytes 0.4 10^3/ul (0-0.8); ABS Neutrophils 6.7 10^3/ul (1.5-7.7); Eosinophil % 4.1 %; Hematocrit 40 % (35-47); Hemoglobin 13.3 g/dL (12.0-16.0); Lymphocyte % 15.4 %; Mean Corpuscular HGB Conc 33 g/dL (31-36); Mean Corpuscular Hemoglobin 26 pg (27-31); Mean Corpuscular Volume 80 fL (80-97); Mean Platelet Volume 8.1 fL (7.4-10.4); Platelet Count 245 10^3/uL (150-450); Red Blood Count 5.03 10^6 /uL (3.70-4.87); Red Cell Distribution Width 16 % (10-15); White Blood Count 8.9 10^3/uL (3.5-10.8)
[2019-10-20 06:26] LABS: Albumin/Globulin Ratio 1.1 (1-3); BUN/Creatinine Ratio 18.1 (8-20); C Reactive Protein 37.8 mg/L (<8.01); Calcium 9.5 mg/dL (8.6-10.3); EGFR African American 102.5 (>60); EGFR Non-African American 84.7 (>60); Globulin 3.6 g/dL (2-4); Potassium 4.2 mmol/L (3.5-5.0); Total Protein 7.6 g/dL (6.4-8.9)
[2019-10-20 06:56] LABS: Urine Appearance Clear; Urine Color Yellow
[2019-10-20 06:57] LABS: Urine Bilirubin Negative (Negative); Urine Blood Negative (Negative); Urine Ketones Negative (Negative); Urine Nitrite Negative (Negative); Urine Protein Negative (Negative); Urine Urobilinogen Negative (Negative)
[2019-10-20 06:58] LABS: Urine Glucose Negative (Negative)
[2019-10-20] MEDS ORDERED: Iodixanol* (CONTRAST) 320 MG/ML 100 ML SDV IV ONE (07:55)
[2019-10-20 10:21] VITALS: BP 155/87
== END 2019-10-20 10:21 | disposition home or self-care (01) ==
LOC: ED 05:22
DX: K42.9 Umbilical hernia without obstruction or gangrene (principal); D25.9 Leiomyoma of uterus, unspecified; N28.1 Cyst of kidney, acquired; E03.9 Hypothyroidism, unspecified; Z87.891 Personal history of nicotine dependence; Z79.890 Hormone replacement therapy; Z79.899 Other long term (current) drug therapy
CPT/HCPCS: 36415; 74177; 80053; 81003; 85025; 86140; 99283; Q9967